=== PATIENT | male | born 1965 | race Caucasian/White ===

== ENCOUNTER 2018-03-16 03:34 | Inpatient (IN) | payer OTHER ==
[~2018-03-16] VITALS: Ht 188 cm; Wt 115.2 kg
[~2018-03-16 03:34] MED LIST: ALBU90OI INH; ALBU90OI61 INH
[2018-03-16] MEDS ORDERED: LOSARTAN-HCTZ1 EAC1 PO (04:04)
[2018-03-16] MEDS ORDERED: Citalopram HBr10 MG PO (04:04)
[2018-03-16 04:49] LABS: BASOPHILS ABSOLUTE AUTO 0.06 K/mm3 (0.00-0.23); BASOPHILS PERCENT AUTO 1 % (0-2); EOSINOPHILS ABSOLUTE AUTO 0.04 K/mm3 (0.00-0.68); EOSINOPHILS PERCENT AUTO 0 % (0-6); Hematocrit 41.1 % (37.0-53.0); Hemoglobin 14.8 g/dL (13.5-17.5); IMMATURE GRAN ABSOLUTE AUTO 0.05 K/mm3 (0.00-0.10); IMMATURE GRAN PERCENT AUTO 0 % (0-1); LYMPHOCYTES ABSOLUTE AUTO 0.61 K/mm3 (0.84-5.20); LYMPHOCYTES PERCENT AUTO 5 % (21-46); MONOCYTES ABSOLUTE AUTO 0.91 K/mm3 (0.16-1.47); MONOCYTES PERCENT AUTO 7 % (4-13); Mean Corpuscular HGB 35.3 pg (26.0-34.0); Mean Corpuscular Volume 98 fL (80-100); Mean Platelet Volume 10.2 fL (9.1-12.4); NEUTROPHILS ABSOLUTE AUTO 11.12 K/mm3 (1.96-9.15); NEUTROPHILS PERCENT AUTO 87 % (41-73); Platelet Count 135 K/mm3 (150-400); RDW Standard Deviation 42.8 fL (35.1-46.3); Red Blood Cell Count 4.19 M/mm3 (4.30-5.90); White Blood Cell Count 12.79 K/mm3 (4.00-11.30)
[2018-03-16 05:08] LABS: Albumin, Blood 3.4 g/dL (3.4-5.0); Albumin/Globulin Ratio 0.7 (0.8-1.8); Bilirubin, Total 0.7 mg/dL (0.1-1.0); Bun/Creatinine Ratio 14.6 (12.0-20.0); Calcium, Blood 8.4 mg/dL (8.5-10.1); Creatinine, Blood 1.85 mg/dL (0.60-1.20); Globulin, Blood 4.7 g/dL (2.2-4.0); Potassium, Blood 4.1 mmol/L (3.5-5.5); Total Protein, Blood 8.1 g/dL (6.4-8.2)
[2018-03-16] MEDS ORDERED: ALBU90OI INH (06:35)
[2018-03-18 10:00] LABS: Hematocrit 36.6 % (37.0-53.0); Hemoglobin 12.9 g/dL (13.5-17.5); Mean Corpuscular HGB 35.2 pg (26.0-34.0); Mean Corpuscular HGB Conc 35.2 g/dL (31.5-36.5); Mean Corpuscular Volume 100 fL (80-100); Platelet Count 92 K/mm3 (150-400); RDW Coefficient Variation 11.9 % (11.7-14.2); RDW Standard Deviation 43.2 fL (35.1-46.3); Red Blood Cell Count 3.66 M/mm3 (4.30-5.90); White Blood Cell Count 8.39 K/mm3 (4.00-11.30)
[2018-03-18 10:31] LABS: Anion Gap 8 mmol/L (6-16); Blood Urea Nitrogen 10 mg/dL (8-24); CO2, Blood 28 mmol/L (21-32); Calcium, Blood 8.6 mg/dL (8.5-10.1); Chloride, Blood 101 mmol/L (98-108); Creatinine, Blood 0.91 mg/dL (0.60-1.20); Glomerular Filtration Rate >60 (60-); Glucose, Blood 167 mg/dL (70-99); Potassium, Blood 3.8 mmol/L (3.5-5.5); Sodium, Blood 137 mmol/L (136-145)
[2018-03-20] MEDS ORDERED: Percocet 5-3251 EACH PO (08:11)
[2018-03-20] MEDS ORDERED: CLIN300 PO (08:16)
== END 2018-03-20 09:33 | disposition home or self-care (01) | DRG 872 ==
LOC: ER 03:34 → MEDS 04:47 → ENPENDDIS 03-20 07:30 → MEDS 03-20 09:33
PROVIDERS: Emergency Medicine; Family Medicine
DX: A41.9 Sepsis, unspecified organism (principal); N17.9 Acute kidney failure, unspecified; E87.1 Hypo-osmolality and hyponatremia; N49.2 Inflammatory disorders of scrotum; I10 Essential (primary) hypertension; J45.909 Unspecified asthma, uncomplicated; A60.02 Herpesviral infection of other male genital organs; Z90.49 Acquired absence of other specified parts of digestive tract; Z79.899 Other long term (current) drug therapy; Z87.891 Personal history of nicotine dependence; D69.6 Thrombocytopenia, unspecified; E66.9 Obesity, unspecified
CPT/HCPCS: 36415; 76870; 80048; 80053; 83605; 85025; 85027; 87040; 94760; 96365; 96375; 99285; J0133; J0360; J2405; J2543; J3010; J3370; J7030; J7050; J7120

== ENCOUNTER 2018-07-12 04:51 | Inpatient (IN) | payer OTHER ==
[~2018-07-12] VITALS: Ht 188 cm; Wt 119.2 kg
[~2018-07-12 04:51] MED LIST changes: +CLIN300 PO; +Citalopram HBr10 MG PO; +LOSARTAN-HCTZ1 EAC1 PO; +Percocet 5-3251 EACH PO
[2018-07-12 06:03] LABS: BASOPHILS ABSOLUTE AUTO 0.04 K/mm3 (0.00-0.23); BASOPHILS PERCENT AUTO 1 % (0-2); EOSINOPHILS ABSOLUTE AUTO 0.14 K/mm3 (0.00-0.68); EOSINOPHILS PERCENT AUTO 2 % (0-6); Hemoglobin 16.1 g/dL (13.5-17.5); IMMATURE GRAN ABSOLUTE AUTO 0.06 K/mm3 (0.00-0.10); IMMATURE GRAN PERCENT AUTO 1 % (0-1); LYMPHOCYTES ABSOLUTE AUTO 1.95 K/mm3 (0.84-5.20); LYMPHOCYTES PERCENT AUTO 24 % (21-46); MONOCYTES ABSOLUTE AUTO 0.64 K/mm3 (0.16-1.47); MONOCYTES PERCENT AUTO 8 % (4-13); Mean Corpuscular HGB 33.5 pg (26.0-34.0); Mean Corpuscular Volume 96 fL (80-100); Mean Platelet Volume 9.5 fL (9.1-12.4); NEUTROPHILS ABSOLUTE AUTO 5.31 K/mm3 (1.96-9.15); NEUTROPHILS PERCENT AUTO 65 % (41-73); Platelet Count 159 K/mm3 (150-400); RDW Coefficient Variation 12.3 % (11.7-14.2); RDW Standard Deviation 42.9 fL (35.1-46.3); Red Blood Cell Count 4.81 M/mm3 (4.30-5.90); White Blood Cell Count 8.14 K/mm3 (4.00-11.30)
[2018-07-12 06:20] LABS: International Normalized Ratio 1.17; Prothrombin Time Results 11.9 Sec (9.7-11.5)
[2018-07-12 06:26] LABS: Alanine Aminotransfer (ALT/SGP 51 U/L (12-78); Albumin, Blood 3.6 g/dL (3.4-5.0); Albumin/Globulin Ratio 0.8 (0.8-1.8); Alk Phos 76 U/L (50-136); Anion Gap 8 mmol/L (6-16); Aspartate Aminotrans (AST/SGOT 51 U/L (12-37); Bilirubin, Total 0.4 mg/dL (0.1-1.0); Blood Urea Nitrogen 9 mg/dL (8-24); Bun/Creatinine Ratio 10.9 (12.0-20.0); CO2, Blood 26 mmol/L (21-32); Calcium, Blood 8.2 mg/dL (8.5-10.1); Chloride, Blood 106 mmol/L (98-108); Creatinine, Blood 0.83 mg/dL (0.60-1.20); Globulin, Blood 4.8 g/dL (2.2-4.0); Glomerular Filtration Rate >60 (60-); Glucose, Blood 110 mg/dL (70-99); Potassium, Blood 3.9 mmol/L (3.5-5.5); Sodium, Blood 140 mmol/L (136-145); Total Protein, Blood 8.4 g/dL (6.4-8.2)
[2018-07-12] MEDS ORDERED: Cleocin HCl300 MG PO (06:43)
[2018-07-12] MEDS ORDERED: Zovirax400 MG PO (06:44)
[2018-07-12] MEDS ORDERED: Percocet 10-321 EACH PO (06:44)
[2018-07-13 05:50] LABS: BASOPHILS ABSOLUTE AUTO 0.04 K/mm3 (0.00-0.23); BASOPHILS PERCENT AUTO 0 % (0-2); EOSINOPHILS ABSOLUTE AUTO 0.07 K/mm3 (0.00-0.68); EOSINOPHILS PERCENT AUTO 1 % (0-6); Hematocrit 43.9 % (37.0-53.0); Hemoglobin 14.6 g/dL (13.5-17.5); IMMATURE GRAN PERCENT AUTO 1 % (0-1); LYMPHOCYTES PERCENT AUTO 6 % (21-46); MONOCYTES ABSOLUTE AUTO 0.76 K/mm3 (0.16-1.47); MONOCYTES PERCENT AUTO 5 % (4-13); Mean Corpuscular HGB 33.3 pg (26.0-34.0); Mean Corpuscular HGB Conc 33.3 g/dL (31.5-36.5); Mean Platelet Volume 9.9 fL (9.1-12.4); NEUTROPHILS ABSOLUTE AUTO 13.22 K/mm3 (1.96-9.15); NEUTROPHILS PERCENT AUTO 88 % (41-73); Platelet Count 117 K/mm3 (150-400); RDW Coefficient Variation 12.3 % (11.7-14.2); RDW Standard Deviation 45.1 fL (35.1-46.3); Red Blood Cell Count 4.39 M/mm3 (4.30-5.90); White Blood Cell Count 15.09 K/mm3 (4.00-11.30)
[2018-07-13 05:53] LABS: Mean Corpuscular Volume 100 fL (80-100)
[2018-07-13 06:11] LABS: Albumin, Blood 3.1 g/dL (3.4-5.0); Albumin/Globulin Ratio 0.7 (0.8-1.8); Bun/Creatinine Ratio 12.6 (12.0-20.0); Creatinine, Blood 1.35 mg/dL (0.60-1.20); Globulin, Blood 4.3 g/dL (2.2-4.0); Potassium, Blood 3.5 mmol/L (3.5-5.5); Total Protein, Blood 7.4 g/dL (6.4-8.2)
[2018-07-13 15:42] LABS: Vancomycin, Trough 15.9 ug/mL (5.0-10.0)
[2018-07-14 05:52] LABS: BASOPHILS ABSOLUTE AUTO 0.02 K/mm3 (0.00-0.23); BASOPHILS PERCENT AUTO 0 % (0-2); EOSINOPHILS ABSOLUTE AUTO 0.15 K/mm3 (0.00-0.68); EOSINOPHILS PERCENT AUTO 2 % (0-6); Hematocrit 42.1 % (37.0-53.0); Hemoglobin 14.1 g/dL (13.5-17.5); IMMATURE GRAN ABSOLUTE AUTO 0.09 K/mm3 (0.00-0.10); IMMATURE GRAN PERCENT AUTO 1 % (0-1); LYMPHOCYTES ABSOLUTE AUTO 1.06 K/mm3 (0.84-5.20); LYMPHOCYTES PERCENT AUTO 10 % (21-46); MONOCYTES ABSOLUTE AUTO 0.86 K/mm3 (0.16-1.47); MONOCYTES PERCENT AUTO 8 % (4-13); Mean Corpuscular HGB 33.2 pg (26.0-34.0); Mean Corpuscular HGB Conc 33.5 g/dL (31.5-36.5); Mean Corpuscular Volume 99 fL (80-100); Mean Platelet Volume 10.5 fL (9.1-12.4); NEUTROPHILS ABSOLUTE AUTO 8.16 K/mm3 (1.96-9.15); NEUTROPHILS PERCENT AUTO 79 % (41-73); Platelet Count 111 K/mm3 (150-400); RDW Coefficient Variation 12.6 % (11.7-14.2); RDW Standard Deviation 45.1 fL (35.1-46.3); Red Blood Cell Count 4.25 M/mm3 (4.30-5.90); White Blood Cell Count 10.34 K/mm3 (4.00-11.30)
[2018-07-14 06:07] LABS: Anion Gap 4 mmol/L (6-16); Blood Urea Nitrogen 16 mg/dL (8-24); Bun/Creatinine Ratio 16.3 (12.0-20.0); CO2, Blood 29 mmol/L (21-32); Calcium, Blood 8.3 mg/dL (8.5-10.1); Chloride, Blood 106 mmol/L (98-108); Creatinine, Blood 0.98 mg/dL (0.60-1.20); Glomerular Filtration Rate >60 (60-); Glucose, Blood 107 mg/dL (70-99); Potassium, Blood 3.8 mmol/L (3.5-5.5); Sodium, Blood 139 mmol/L (136-145)
[2018-07-14 16:15] LABS: Vancomycin, Trough 15.3 ug/mL (5.0-10.0)
[2018-07-15 04:34] LABS: BASOPHILS ABSOLUTE AUTO 0.03 K/mm3 (0.00-0.23); BASOPHILS PERCENT AUTO 0 % (0-2); EOSINOPHILS ABSOLUTE AUTO 0.13 K/mm3 (0.00-0.68); EOSINOPHILS PERCENT AUTO 1 % (0-6); Hematocrit 41.9 % (37.0-53.0); Hemoglobin 14.2 g/dL (13.5-17.5); IMMATURE GRAN ABSOLUTE AUTO 0.07 K/mm3 (0.00-0.10); IMMATURE GRAN PERCENT AUTO 1 % (0-1); LYMPHOCYTES ABSOLUTE AUTO 1.38 K/mm3 (0.84-5.20); LYMPHOCYTES PERCENT AUTO 12 % (21-46); MONOCYTES PERCENT AUTO 9 % (4-13); Mean Corpuscular HGB 33.5 pg (26.0-34.0); Mean Corpuscular HGB Conc 33.9 g/dL (31.5-36.5); Mean Corpuscular Volume 99 fL (80-100); Mean Platelet Volume 9.8 fL (9.1-12.4); NEUTROPHILS ABSOLUTE AUTO 8.62 K/mm3 (1.96-9.15); NEUTROPHILS PERCENT AUTO 77 % (41-73); Platelet Count 115 K/mm3 (150-400); RDW Coefficient Variation 12.3 % (11.7-14.2); RDW Standard Deviation 44.3 fL (35.1-46.3); Red Blood Cell Count 4.24 M/mm3 (4.30-5.90); White Blood Cell Count 11.23 K/mm3 (4.00-11.30)
[2018-07-15 05:00] LABS: Anion Gap 5 mmol/L (6-16); Blood Urea Nitrogen 12 mg/dL (8-24); Bun/Creatinine Ratio 13.2 (12.0-20.0); CO2, Blood 30 mmol/L (21-32); Calcium, Blood 9.9 mg/dL (8.5-10.1); Chloride, Blood 104 mmol/L (98-108); Creatinine, Blood 0.91 mg/dL (0.60-1.20); Glomerular Filtration Rate >60 (60-); Glucose, Blood 109 mg/dL (70-99); Potassium, Blood 4.2 mmol/L (3.5-5.5); Sodium, Blood 139 mmol/L (136-145)
[2018-07-16 07:18] LABS: Hematocrit 41.4 % (37.0-53.0); Hemoglobin 14.5 g/dL (13.5-17.5); Mean Corpuscular HGB 33.6 pg (26.0-34.0); Mean Platelet Volume 9.9 fL (9.1-12.4); Platelet Count 138 K/mm3 (150-400); RDW Standard Deviation 42.4 fL (35.1-46.3); Red Blood Cell Count 4.31 M/mm3 (4.30-5.90); White Blood Cell Count 9.22 K/mm3 (4.00-11.30)
[2018-07-16 07:25] LABS: Mean Corpuscular Volume 96 fL (80-100)
[2018-07-16 07:35] LABS: Vancomycin, Trough 18.8 ug/mL (5.0-10.0)
[2018-07-16 07:41] LABS: Anion Gap 7 mmol/L (6-16); Blood Urea Nitrogen 11 mg/dL (8-24); Bun/Creatinine Ratio 11.7 (12.0-20.0); CO2, Blood 29 mmol/L (21-32); Chloride, Blood 101 mmol/L (98-108); Creatinine, Blood 0.94 mg/dL (0.60-1.20); Glomerular Filtration Rate >60 (60-); Glucose, Blood 103 mg/dL (70-99); Sodium, Blood 137 mmol/L (136-145)
[2018-07-17 04:56] LABS: Hematocrit 41.6 % (37.0-53.0); Hemoglobin 14.7 g/dL (13.5-17.5); Mean Corpuscular HGB 33.3 pg (26.0-34.0); Mean Corpuscular HGB Conc 35.3 g/dL (31.5-36.5); Mean Corpuscular Volume 94 fL (80-100); Mean Platelet Volume 9.7 fL (9.1-12.4); Platelet Count 155 K/mm3 (150-400); RDW Coefficient Variation 11.9 % (11.7-14.2); RDW Standard Deviation 41.5 fL (35.1-46.3); Red Blood Cell Count 4.42 M/mm3 (4.30-5.90); White Blood Cell Count 9.91 K/mm3 (4.00-11.30)
[2018-07-17 05:25] LABS: Anion Gap 7 mmol/L (6-16); Blood Urea Nitrogen 15 mg/dL (8-24); Bun/Creatinine Ratio 16.2 (12.0-20.0); CO2, Blood 30 mmol/L (21-32); Calcium, Blood 9.4 mg/dL (8.5-10.1); Chloride, Blood 100 mmol/L (98-108); Creatinine, Blood 0.93 mg/dL (0.60-1.20); Glomerular Filtration Rate >60 (60-); Glucose, Blood 98 mg/dL (70-99); Potassium, Blood 4.1 mmol/L (3.5-5.5); Sodium, Blood 137 mmol/L (136-145)
[2018-07-17 08:18] LABS: CHLAMYDIA BY NAA Negative (Negative); GONOCOCCUS BY NAA Negative (Negative); TRICH VAG BY NAA Negative (Negative)
[2018-07-17] MEDS ORDERED: Valtrex1000 MG PO (11:57)
[2018-07-17] MEDS ORDERED: Percocet 10-321 EACH PO (11:58)
[2018-07-17] MEDS ORDERED: IBUP800 PO (12:00)
[2018-07-17] MEDS ORDERED: SACC250C PO (12:01)
[2018-07-18 11:07] LABS: PANEL 138901 Negative (Negative)
== END 2018-07-17 13:15 | disposition home or self-care (01) | DRG 728 ==
LOC: ER 04:51 → MEDS 08:47 → ENPENDDIS 07-17 12:08 → MEDS 07-17 13:15
PROVIDERS: Emergency Medicine; Family Medicine; Internal Medicine
DX: N49.2 Inflammatory disorders of scrotum (principal); N17.9 Acute kidney failure, unspecified; Z90.49 Acquired absence of other specified parts of digestive tract; Z87.891 Personal history of nicotine dependence; A60.00 Herpesviral infection of urogenital system, unspecified; I10 Essential (primary) hypertension; F32.9 Major depressive disorder, single episode, unspecified
CPT/HCPCS: 36415; 76870; 80048; 80053; 80202; 83605; 85025; 85027; 85610; 85730; 86702; 87040; 87491; 87591; 87661; 93005; 93010; 94760; 96365; 96366; 96367; 96375; 96376; 99285-25; J0360; J0692; J0696; J1170; J1650; J1956; J2405; J2543; J3370; J7030; J7050; J7120

== ENCOUNTER → 2018-12-16 | Outpatient (CLI) | payer SELFPAY ==
[~2018-12-16] MED LIST changes: +Cleocin HCl300 MG PO; +IBUP800 PO; +Percocet 10-321 EACH PO; +SACC250C PO; +Valtrex1000 MG PO; +Zovirax400 MG PO
[2018-12-16 19:17] LABS: Alanine Aminotransfer (ALT/SGP 171 U/L (12-78); Albumin, Blood 3.8 g/dL (3.4-5.0); Albumin/Globulin Ratio 0.7 (0.8-1.8); Alk Phos 138 U/L (50-136); Anion Gap 9 mmol/L (6-16); Aspartate Aminotrans (AST/SGOT 219 U/L (12-37); Bilirubin, Total 0.9 mg/dL (0.1-1.0); Blood Urea Nitrogen 11 mg/dL (8-24); Bun/Creatinine Ratio 16.4 (12.0-20.0); CO2, Blood 26 mmol/L (21-32); Chloride, Blood 101 mmol/L (98-108); Creatinine, Blood 0.67 mg/dL (0.60-1.20); Globulin, Blood 5.2 g/dL (2.2-4.0); Glomerular Filtration Rate >60 (60-); Glucose, Blood 123 mg/dL (70-99); Potassium, Blood 3.7 mmol/L (3.5-5.5); Sodium, Blood 136 mmol/L (136-145)
== END | disposition home or self-care (01) ==
LOC: LAB 17:09 → LAB SHORT 17:09
PROVIDERS: Nurse Practitioner Family
DX: F10.10 Alcohol abuse, uncomplicated (principal)
CPT/HCPCS: 80053

== ENCOUNTER → 2018-12-18 | Outpatient (CLI) | payer SELFPAY ==
[2018-12-18 17:20] LABS: U Amphetamine Screen Not Detected; U Barbituate Screen Not Detected; U Benzodiazapine Screen Not Detected; U Buprenorphine Screen Not Detected; U Cannabinoids Screen Not Detected; U Cocaine Screen Not Detected; U Methadone Screen Not Detected; U Methamphetamine Screen Not Detected; U Opiates Screen Not Detected; U Oxycodone Screen Not Detected; U Phencyclidine Screen Not Detected; U Propoxyphene Screen Not Detected
== END | disposition home or self-care (01) ==
LOC: LAB SHORT 16:34 → LAB 16:34
PROVIDERS: Nurse Practitioner Family
DX: F10.10 Alcohol abuse, uncomplicated (principal)

== ENCOUNTER 2018-12-31 03:31 | Emergency (ER) | payer SELFPAY ==
[~2018-12-31] VITALS: Ht 188 cm; Wt 124.7 kg
[2018-12-31] MEDS ORDERED: Norco 5-325 Ta1 EACH PO (04:40)
[2018-12-31] MEDS ORDERED: Cleocin HCl150 MG PO (04:40)
[2018-12-31] MEDS ORDERED: ONDA4ODT MM (04:40)
[2018-12-31] MEDS ORDERED: Valtrex1000 MG PO (04:40)
[2018-12-31] MEDS ORDERED: TRAZ50 PO (15:39)
== END 2018-12-31 05:49 | disposition home or self-care (01) ==
LOC: ER 03:31
DX: L03.314 Cellulitis of groin (principal); B00.9 Herpesviral infection, unspecified; Z79.899 Other long term (current) drug therapy; J45.909 Unspecified asthma, uncomplicated; Z87.891 Personal history of nicotine dependence
CPT/HCPCS: 96374; 96375; 99282-25; A9270-GY; J0692; J1170; J2405; J7030

== ENCOUNTER 2018-12-31 13:27 | Day surgery (SDC) | payer SELFPAY ==
[~2018-12-31 13:27] MED LIST changes: +Cleocin HCl150 MG PO; +Norco 5-325 Ta1 EACH PO; +ONDA4ODT MM
[2018-12-31] MEDS ORDERED: TRAZ50 PO (15:39)
== END 2018-12-31 15:50 | disposition home or self-care (01) ==
LOC: ATC 13:27
DX: L03.314 Cellulitis of groin (principal); B00.9 Herpesviral infection, unspecified; J45.909 Unspecified asthma, uncomplicated; Z87.891 Personal history of nicotine dependence; Z79.899 Other long term (current) drug therapy
CPT/HCPCS: 96365; J0692

== ENCOUNTER 2020-09-21 17:52 | Inpatient (IN) | payer OTHER ==
[~2020-09-21] VITALS: Ht 188 cm; Wt 99.7 kg
[~2020-09-21 17:52] MED LIST changes: +TRAZ50 PO
[2020-09-21 19:04] LABS: BASOPHILS ABSOLUTE AUTO 0.05 K/mm3 (0.00-0.23); BASOPHILS PERCENT AUTO 1 % (0-2); EOSINOPHILS ABSOLUTE AUTO 0.01 K/mm3 (0.00-0.68); EOSINOPHILS PERCENT AUTO 0 % (0-6); Hematocrit 44.9 % (37.0-53.0); Hemoglobin 15.4 g/dL (13.5-17.5); IMMATURE GRAN ABSOLUTE AUTO 0.02 K/mm3 (0.00-0.10); IMMATURE GRAN PERCENT AUTO 0 % (0-1); LYMPHOCYTES PERCENT AUTO 14 % (21-46); MONOCYTES ABSOLUTE AUTO 0.42 K/mm3 (0.16-1.47); MONOCYTES PERCENT AUTO 8 % (4-13); Mean Corpuscular HGB 33.8 pg (26.0-34.0); Mean Corpuscular HGB Conc 34.3 g/dL (31.5-36.5); Mean Corpuscular Volume 99 fL (80-100); Mean Platelet Volume 10.9 fL (9.1-12.4); NEUTROPHILS ABSOLUTE AUTO 3.86 K/mm3 (1.96-9.15); NEUTROPHILS PERCENT AUTO 76 % (41-73); NRBC ABSOLUTE 0.02 K/mm3 (0.00-0.02); NRBC Auto 0.4 /100 WBC (0.0-0.2); RDW Coefficient Variation 12.3 % (11.7-14.2); RDW Standard Deviation 45.1 fL (35.1-46.3); Red Blood Cell Count 4.56 M/mm3 (4.30-5.90); White Blood Cell Count 5.06 K/mm3 (4.00-11.30)
[2020-09-21 19:13] LABS: Platelet Count 40 K/mm3 (150-400)
[2020-09-21 19:25] LABS: Alanine Aminotransfer (ALT/SGP 107 U/L (12-78); Albumin, Blood 3.2 g/dL (3.4-5.0); Albumin/Globulin Ratio 0.7 (0.8-1.8); Alk Phos 123 U/L (50-136); Anion Gap 12 mmol/L (6-16); Aspartate Aminotrans (AST/SGOT 239 U/L (12-37); Bilirubin, Total 2.7 mg/dL (0.1-1.0); Blood Urea Nitrogen 11 mg/dL (8-24); Bun/Creatinine Ratio 16.2 (12.0-20.0); CO2, Blood 24 mmol/L (21-32); Calcium, Blood 10.5 mg/dL (8.5-10.1); Chloride, Blood 100 mmol/L (98-108); Creatinine, Blood 0.68 mg/dL (0.60-1.20); Globulin, Blood 4.8 g/dL (2.2-4.0); Glomerular Filtration Rate >60 (60-); Glucose, Blood 168 mg/dL (70-99); Sodium, Blood 136 mmol/L (136-145)
[2020-09-21 20:49] LABS: Influenza A, PCR Negative (NEGATIVE); Influenza B, PCR Negative (NEGATIVE); Resp Syncytial Virus, PCR Negative (NEGATIVE); SARS-Cov-2 (COVID-19) PCR, MMC Negative (NEGATIVE)
[2020-09-21 21:58] LABS: Troponin I <0.015 ng/mL (0.000-0.040)
[2020-09-21 22:58] LABS: Ethanol (Alcohol), Blood, Med 160 mg/dL
[2020-09-22] MEDS ORDERED: AZIT250 PO (01:14)
[2020-09-22] MEDS ORDERED: CEFD300 PO (01:15)
[2020-09-22] MEDS ORDERED: Inderal 20 mg T20 MG PO (02:26)
--- NOTE | 2020-09-22 05:03 | NUR ---
PCU ADMIT PT BROUGHT TO PCU MEDICAL W/ TELE STATUS BY LAZ[facility] FROM ER @ APPROX 0330. PT A&O X4, SLID OVER FROM [facility] TO PCU BED BY 3 STAFF D/T PT REPORTING INABILITY TO STAND. PT NOTED TO BE EXTREMELY WEAK & HAVING SEVERE BUE TREMORS. PT PROFUSELY SWEATY & REPORTS HAVING VISUAL HALLUCINATIONS, STATING "IT'S LIKE I'M SEEING MOVIES. THEY'RE LIKE [employer] Solutions[employer] CLIPS, BUT WITH NO SOUND." PT W/ CIWA OF 24 UPON ARRIVAL, MEDICATED W/ 3 MG PRN IV ATIVAN PER EMAR & 50 MG PRN PO LIBRIUM PER EMAR. UPON REASSESSMENT OF PT, PT CIWA DOWN TO 14 W/ PT TREMORS SIGNIFICANTLY REDUCED & NO SWEATING VISIBLE OR FELT AT THIS TIME. PT REPORTS ATIVAN REALLY HELPFUL. PT BP ELEVATED, OTHERWISE VSS. SPO2 > 92% ON RA. MONITOR SHOWS SR, HR 80's-90's. PT C/O HEARTBURN & HAS HAD HICCUPS SINCE ARRIVAL TO UNIT. PT ALSO W/ C/O "WHOLE BODY ACHES" W/ REQUEST FOR PAIN MEDICATION. CALL TO MD MCCRACKEN W/ NEW ORDERS TO CHANGE FROM MEDICAL STATUS TO PCU STATUS. NEW ORDER FOR BID IV PROTONIX, SEE EMAR. W/ NO ORDER FOR PAIN MEDICATION AT THIS TIME. WILL CONTINUE TO MONITOR & PROVIDE CARE.
--- NOTE | 2020-09-22 06:32 | NUR ---
SHIFT SUMMARY PT CONTINUING W/ SIGNIFICANT TREMORS & VISUAL HALLUCINATIONS, MEDICATING PER EMAR W/ IMPROVEMENT. PT A&O X4, PLEASANT & COOPERATIVE. BP ELEVATED, OTHERWISE VSS. PT NOW SLEEPING AT THIS TIME. WILL CONTINUE TO MONITOR & PROVIDE CARE UNTIL REPORT OFF TO DAY SHIFT RN.
[2020-09-22 11:22] LABS: Alanine Aminotransfer (ALT/SGP 104 U/L (12-78); Albumin, Blood 2.9 g/dL (3.4-5.0); Albumin/Globulin Ratio 0.7 (0.8-1.8); Alk Phos 115 U/L (50-136); Anion Gap 6 mmol/L (6-16); Aspartate Aminotrans (AST/SGOT 239 U/L (12-37); Bilirubin, Total 3.2 mg/dL (0.1-1.0); Blood Urea Nitrogen 11 mg/dL (8-24); Bun/Creatinine Ratio 15.2 (12.0-20.0); CO2, Blood 31 mmol/L (21-32); Calcium, Blood 9.3 mg/dL (8.5-10.1); Chloride, Blood 103 mmol/L (98-108); Creatinine, Blood 0.73 mg/dL (0.60-1.20); Globulin, Blood 4.3 g/dL (2.2-4.0); Glomerular Filtration Rate >60 (60-); Glucose, Blood 131 mg/dL (70-99); Potassium, Blood 3.6 mmol/L (3.5-5.5); Sodium, Blood 140 mmol/L (136-145); Total Protein, Blood 7.2 g/dL (6.4-8.2)
--- NOTE | 2020-09-22 18:05 | NUR ---
SHIFT SUMMARY; ASSUMED CARE AT 0700, REPORT FROM MONICA. AWAKES TO VERBAL STIMULI AND ORIENTED TO SELF. TREMULOUS WITH DIAPHERESIS, CIWA PROTOCOL MONITORED AND TREATED. LESS DIAPHERESIS THROUGHOUT THE DAY, CONTINUES TO HAVE AUDITORY HALLUCINATIONS. REPOSITIONS SELF NEEDED. USES URINAL WITH ASSISTANCE. ORIENTED TO SELF AND SITUATION AT THIS TIME, SLEEPY. VSS, 2L 02 VIA NC, CONTINUOUS BIOX. WILL CONTINUE TO MONITOR AND TREAT UNTIL CHANGE OF SHIFT.
--- NOTE | 2020-09-23 05:34 | NUR ---
SHIFT SUMMARY PT A&O X3, DISORIENTED TO DATE/TIME BY < 2 DAYS DESPITE STAFF REMINDING. PT CIWA 9-14 THIS SHIFT, MEDICATING W/ SCHEDULED LIBRIUM PER EMAR X3 THIS SHIFT, & PRN ATIVAN X2 THIS SHIFT. PT CONTINUES TO BE SWEATY & TREMULOUS. PT DENIES HALLUCINATIONS THIS SHIFT. PT OVERALL CALM & COOPERATIVE, AGITATED AT 1 POINT THIS SHIFT, FRUSTRATED W/ HIS CURRENT PHYSICAL STATE OF BEING UNABLE TO STAND D/T BEING TOO WEAK & TREMULOUS. PT REPORTS "I WANT TO GO HOME TODAY." PT STILL HOWEVER ON BOARD W/ ALCOHOL CESSATION AT THIS POINT. WILL CONTINUE TO MONITOR & PROVIDE CARE UNTIL REPORT OFF TO DAY SHIFT RN.
[2020-09-23 07:38] LABS: Hematocrit 40.9 % (37.0-53.0); Hemoglobin 13.7 g/dL (13.5-17.5); Mean Corpuscular HGB 34.3 pg (26.0-34.0); Mean Corpuscular HGB Conc 33.5 g/dL (31.5-36.5); Mean Corpuscular Volume 103 fL (80-100); Mean Platelet Volume 12.5 fL (9.1-12.4); RDW Coefficient Variation 12.9 % (11.7-14.2); RDW Standard Deviation 48.9 fL (35.1-46.3); Red Blood Cell Count 3.99 M/mm3 (4.30-5.90); White Blood Cell Count 2.85 K/mm3 (4.00-11.30)
[2020-09-23 07:43] LABS: Platelet Count 20 K/mm3 (150-400)
[2020-09-23 07:46] LABS: Anion Gap 4 mmol/L (6-16); Blood Urea Nitrogen 12 mg/dL (8-24); Bun/Creatinine Ratio 18.3 (12.0-20.0); CO2, Blood 32 mmol/L (21-32); Chloride, Blood 103 mmol/L (98-108); Creatinine, Blood 0.66 mg/dL (0.60-1.20); Glomerular Filtration Rate >60 (60-); Glucose, Blood 114 mg/dL (70-99); Potassium, Blood 3.8 mmol/L (3.5-5.5); Sodium, Blood 139 mmol/L (136-145)
--- NOTE | 2020-09-23 07:58 | NUR ---
Bedside report received from Mary Mccurdy the pt appeared to be sleeping at the time. The pt was awakened by elian Kirby. Gave results of critical platelet level to her in pt's room. The pt is awake, vainly attempting to put chewing tobacco in his mouth but is tremulous and not able to bring his fingers to his mouth without great effort. He is spilling it all over the bed. DR. Foley states that the pt told her he was having problems with urinary incontinence at home, and he has had urinary incontinence at this time, as well. Pt states that he has a mild headache, 1/10, mild nausea, and he also has visible tremors when he holds his hands out in front. States that he needs "another liter of fluid". States that he is able to eat and drink, and requests that he be given a lot of ice water at the bedside. This was provided to him. He wants to try to eat and drink on his own this morning. CNAs asked to provide assistance and hygeine care this morning.
[2020-09-23 10:17] LABS: BASOPHILS ABSOLUTE AUTO 0.02 K/mm3 (0.00-0.23); BASOPHILS PERCENT AUTO 1 % (0-2); EOSINOPHILS ABSOLUTE AUTO 0.08 K/mm3 (0.00-0.68); EOSINOPHILS PERCENT AUTO 3 % (0-6); Hematocrit 41.6 % (37.0-53.0); Hemoglobin 13.5 g/dL (13.5-17.5); IMMATURE GRAN ABSOLUTE AUTO 0.01 K/mm3 (0.00-0.10); IMMATURE GRAN PERCENT AUTO 0 % (0-1); LYMPHOCYTES ABSOLUTE AUTO 0.44 K/mm3 (0.84-5.20); LYMPHOCYTES PERCENT AUTO 15 % (21-46); MONOCYTES PERCENT AUTO 13 % (4-13); Mean Corpuscular HGB 33.4 pg (26.0-34.0); Mean Corpuscular HGB Conc 32.5 g/dL (31.5-36.5); Mean Corpuscular Volume 103 fL (80-100); Mean Platelet Volume 12.7 fL (9.1-12.4); NEUTROPHILS ABSOLUTE AUTO 2.08 K/mm3 (1.96-9.15); NEUTROPHILS PERCENT AUTO 69 % (41-73); RDW Standard Deviation 49.6 fL (35.1-46.3); Red Blood Cell Count 4.04 M/mm3 (4.30-5.90); White Blood Cell Count 3.03 K/mm3 (4.00-11.30)
[2020-09-23 10:22] LABS: Platelet Count 21 K/mm3 (150-400)
--- NOTE | 2020-09-23 10:28 | NUR ---
IV fluids hung at this time; the pt is sleeping but awakened easily when I spoke with him. He quickly fell back asleep.
--- NOTE | 2020-09-23 10:42 | NUR ---
BEDSIDE REPORT RECEIVED FROM NOC RN. PT WAS RESTING AT THE TIME OF REPORT. PT REPORTED SOME NAUSEA, A MILD HEADACHE AND OVERALL BODY ACHES. PT RECEIVED MORNING MEDICATION WELL ZOFRAN. PT HAS FLUIDS RUNNING. PT WAS A BIT SLOW TO RESPOND THIS MORNING AND STRUGGLED TO CONTROL HIS ARM MOVEMENTS; PT WAS NOT ABLE TO GET HIS HAND TO HIS MOUTH HIS DEPTH PERCEPTION WAS OFF AND TREMORS WERE TOO FAST TO BE ABLE TO GET THE MEDICATIONS TO HIS MOUTH. PT IS RESTING AT THIS TIME
--- NOTE | 2020-09-23 16:12 | NUR ---
CELL PHONE PT HAD A CELL PHONE IN THE ROOM THIS MORNING WHEN WE ARRIVED ON SHIFT. PT ASKED FOR A USB WALL PORT FOR HIS CORD TO CHARGE HIS PHONE. I WAS ABLE TO FIND ONE AND PLUG HIS PHONE IN FOR HIM. WHEN I SPOKE WITH HIS GIRLFRIEND THIS MORNING, RAYA, I EXPLAINED THAT HE MAY NOT HAVE BEEN ANSWERING CALLS BECAUSE HIS PHONE WAS , BUT IT IS NOW ON THE ORGAN TUNER. ONCE THE VISITING HOUR WINDOW WAS OPEN, PROFESSOR OF VEGETABLE SCIENCE'Anusha LOUIS AND YUSUF CURIEL FOUND THE GIRLFRIEND, RAYA IN HIS ROOM; TAKING THE PHONE AND WHEN QUESTIONED ABOUT IT, SHE STATED "SHE WAS THE GIRLFRIEND AND WAS TAKING IT TO CHARGE AND WOULD BRING IT BACK" SHE THEN LEFT. AT THIS TIME, THE PT WAS VERY LETHARGIC AND SLEEPING AND UNAWARE OF THIS EVENT. ONCE I WAS INFORMED I ASKED THE PT IF HE WAS AWARE THIS HAD HAPPENED AND IF HE WOULD LIKE FOR ME TO CALL RAYA AND INQUIRE TO WHEN IT WOULD BE BACK; HE AGREED STATING "I WANT TO CALL SOME OF MY FAMILY, I NEED MY PHONE." WALT DUQUE, CALLED RAYA USING THE PHONE NUMBER FROM PT CONTACT [employer] IN THE CHART BUT RECEIVED NO ANSWER; WILL ATTEMPT AGAIN LATER.
--- NOTE | 2020-09-23 17:23 | NUR ---
SHIFT SUMMARY PT HAS BEEN VERY LETHARGIC BUT AROUSABLE THROUGHOUT THE DAY. THE PHENIBARBITOL WAS HELD AT NOON DUE TO SOLUMENCE AND LACK OF AROUSAL. PT HAS HAD A LINEN CHANGE, AND IS CURRENTLY WEARING BRIEFS HE HAS BEEN OCCASSIONALLY INCONTINENT TODAY. PT HAS BED ALARM AND SCDS ON. NS IS RUNNING. SLIGHT TREMORS AND SWEATING HAVE BEEN PRESENT TODAY. PT IS WANTING TO WORK WITH PHYSICAL THERAPY AND OCCUPATIONAL THERAPY TOMORROW HOPING HE WILL BE MORE AWAKE TO DO SO.
--- NOTE | 2020-09-23 18:24 | NUR ---
CELL PHONE UPDATE PT'S GIRLFRIEND, RAYA, RETURNED WITH THE CELL PHONE, REPORTING THAT SHE HAD CHARGED IT SOME AND BROUGHT IT BACK. I EXPLAINED THAT SHE IS WELCOME TO BRING A OPEN DEVELOPER OPERATOR HERE WHEN SHE RETURNS.
--- NOTE | 2020-09-24 05:00 | NUR ---
SUMMARY PATIENT IS ALERT, ORIENTED AND COOPERATIVE WITH CARE. 2 PERSON ASSIST WITH REPOSTIONING IN BED. LAST CIWA SCORE WAS 10, MEDICATED, SEE EMAR. PATIENT DRINKING FLUIDS WELL. 02 SATS >90% ON 2L NC WHILE SLEEPING. PATIENT SLEPT PART OF THE NIGHT. VSS, NO ACUTE CHANGES. CALL LIGHT IN REACH, BED ALARM ON. WILL CONTINUE TO MONITOR.
[2020-09-24 08:23] LABS: BASOPHILS ABSOLUTE AUTO 0.03 K/mm3 (0.00-0.23); BASOPHILS PERCENT AUTO 1 % (0-2); EOSINOPHILS ABSOLUTE AUTO 0.16 K/mm3 (0.00-0.68); EOSINOPHILS PERCENT AUTO 4 % (0-6); Hematocrit 40.8 % (37.0-53.0); Hemoglobin 13.7 g/dL (13.5-17.5); IMMATURE GRAN ABSOLUTE AUTO 0.03 K/mm3 (0.00-0.10); IMMATURE GRAN PERCENT AUTO 1 % (0-1); LYMPHOCYTES PERCENT AUTO 18 % (21-46); MONOCYTES PERCENT AUTO 10 % (4-13); Mean Corpuscular HGB 34.8 pg (26.0-34.0); Mean Corpuscular HGB Conc 33.6 g/dL (31.5-36.5); Mean Corpuscular Volume 104 fL (80-100); Mean Platelet Volume 11.3 fL (9.1-12.4); NEUTROPHILS ABSOLUTE AUTO 2.66 K/mm3 (1.96-9.15); NEUTROPHILS PERCENT AUTO 67 % (41-73); RDW Standard Deviation 49.7 fL (35.1-46.3); Red Blood Cell Count 3.94 M/mm3 (4.30-5.90); White Blood Cell Count 3.98 K/mm3 (4.00-11.30)
[2020-09-24 08:29] LABS: Platelet Count 23 K/mm3 (150-400)
[2020-09-24 08:38] LABS: Anion Gap 5 mmol/L (6-16); Blood Urea Nitrogen 8 mg/dL (8-24); Bun/Creatinine Ratio 14.4 (12.0-20.0); CO2, Blood 30 mmol/L (21-32); Calcium, Blood 8.9 mg/dL (8.5-10.1); Chloride, Blood 103 mmol/L (98-108); Creatinine, Blood 0.56 mg/dL (0.60-1.20); Glomerular Filtration Rate >60 (60-); Glucose, Blood 105 mg/dL (70-99); Magnesium, Blood 1.5 mg/dL (1.6-2.4); Potassium, Blood 3.8 mmol/L (3.5-5.5); Sodium, Blood 138 mmol/L (136-145)
--- NOTE | 2020-09-24 17:41 | NUR ---
SHIFT SUMMARY; ASSUMED CARE AT 0700. INTERMITANTLY CONFUSED THROUGHOUT SHIFT WITH INTERMITANT DIAPHERESIS. CIWA MAINTAINED, MEDICATED PER ORDERS. SLEEPS FOR SEVERAL HOURS IN AFTERNOON, VSS, GIRLFRIEND AT BEDSIDE DURING VISITING HOURS. SELF REPOSITIONS IN BED BUT REMAINS WEAK. INCONTINANT OF URINE DURING SHIFT AND ATTENDS CHANGED WHEN NEEDED. WILL CONTINUE TO MONITOR AND TREAT UNTIL CHANGE OF SHIFT.
[2020-09-25 04:30] LABS: BASOPHILS ABSOLUTE AUTO 0.04 K/mm3 (0.00-0.23); BASOPHILS PERCENT AUTO 1 % (0-2); EOSINOPHILS ABSOLUTE AUTO 0.16 K/mm3 (0.00-0.68); EOSINOPHILS PERCENT AUTO 4 % (0-6); Hematocrit 41.3 % (37.0-53.0); Hemoglobin 13.9 g/dL (13.5-17.5); IMMATURE GRAN ABSOLUTE AUTO 0.01 K/mm3 (0.00-0.10); IMMATURE GRAN PERCENT AUTO 0 % (0-1); LYMPHOCYTES ABSOLUTE AUTO 0.91 K/mm3 (0.84-5.20); LYMPHOCYTES PERCENT AUTO 22 % (21-46); MONOCYTES ABSOLUTE AUTO 0.51 K/mm3 (0.16-1.47); MONOCYTES PERCENT AUTO 12 % (4-13); Mean Corpuscular HGB 34.4 pg (26.0-34.0); Mean Corpuscular HGB Conc 33.7 g/dL (31.5-36.5); Mean Corpuscular Volume 102 fL (80-100); Mean Platelet Volume 11.9 fL (9.1-12.4); NEUTROPHILS ABSOLUTE AUTO 2.49 K/mm3 (1.96-9.15); NEUTROPHILS PERCENT AUTO 60 % (41-73); RDW Coefficient Variation 12.9 % (11.7-14.2); RDW Standard Deviation 48.4 fL (35.1-46.3); Red Blood Cell Count 4.04 M/mm3 (4.30-5.90); White Blood Cell Count 4.12 K/mm3 (4.00-11.30)
[2020-09-25 04:34] LABS: Platelet Count 30 K/mm3 (150-400)
--- NOTE | 2020-09-25 06:04 | NUR ---
SHIFT SUMMARY PT SLEPT T/O SHIFT. PT ALERT AND ORIENTED X 3. CONFUSED AT TIMES. PT INCONTINENT AT TIMES. BRIEF IN PLACE. PT ABLE TO ASSIST IN Q 2 TURNS AND BRIEF CHANGES. PT HYPERTENSIVE AT TIMES. HR STABLE. PT REPORTS NO CP OR PRESSURE. OXYGEN SATURATION MAINTAINED ABOVE 92% ON RA. CIWA SCORES STABLE AT 4. BED ALARM IN PLACE. WILL CONTINUE TO MONITOR UNTIL REPORT GIVEN TO DAYSHIFT RN.
--- NOTE | 2020-09-25 17:38 | NUR ---
SUMMARY PT CONFUSED OFF AND ON T/O SHIFT. CIWA RANGED 3-6 T/O DAY. WORKED W/THERAPY. STOOD AT BEDSIDE W/THERAPIST. MEDICATED ONCE DURING SHIFT FOR "ALL OVER PAIN" W/15MG IV TORADOL PER ORDERS. BED ALARM ON, PT OCCASIONALLY ATTEMPTS TO GET OUT OF BED. VISITOR AT BEDSIDE AT THIS TIME. PT DENIES ANY NEEDS. CALL LIGHT IN REACH.
[2020-09-26 04:26] LABS: BASOPHILS ABSOLUTE AUTO 0.03 K/mm3 (0.00-0.23); BASOPHILS PERCENT AUTO 1 % (0-2); EOSINOPHILS ABSOLUTE AUTO 0.13 K/mm3 (0.00-0.68); EOSINOPHILS PERCENT AUTO 4 % (0-6); Hemoglobin 13.4 g/dL (13.5-17.5); IMMATURE GRAN ABSOLUTE AUTO 0.02 K/mm3 (0.00-0.10); IMMATURE GRAN PERCENT AUTO 1 % (0-1); LYMPHOCYTES ABSOLUTE AUTO 0.68 K/mm3 (0.84-5.20); LYMPHOCYTES PERCENT AUTO 20 % (21-46); MONOCYTES ABSOLUTE AUTO 0.61 K/mm3 (0.16-1.47); MONOCYTES PERCENT AUTO 18 % (4-13); Mean Corpuscular HGB 35.3 pg (26.0-34.0); Mean Corpuscular HGB Conc 34.4 g/dL (31.5-36.5); Mean Corpuscular Volume 103 fL (80-100); NEUTROPHILS ABSOLUTE AUTO 1.97 K/mm3 (1.96-9.15); NEUTROPHILS PERCENT AUTO 57 % (41-73); RDW Coefficient Variation 13.1 % (11.7-14.2); White Blood Cell Count 3.44 K/mm3 (4.00-11.30)
[2020-09-26 04:30] LABS: Platelet Count 38 K/mm3 (150-400)
--- NOTE | 2020-09-26 05:46 | NUR ---
SHIFT SUMMARY PT SLEPT T/O SHIFT. PT ALERT AND ORIENTED X4. CONFUSED/FORGETFUL AT TIMES. BED ALARM IN PLACE. CIWA SCORE 2 T/0 SHIFT. HR STABLE. BP STABLE. PT REPORTS NO CP OR PRESSURE. OXYGEN SATURATION MAINTAINED ABOVE 92% ON RA. PT ABLE TO TURN SELF IN BED. PT USES URINAL, DEPENDS IN PLACE FOR INCONTINENCE. PT REFUSES SCD'S AT TIMES. WILL CONTINUE TO MONITOR UNTIL REPORT GIVEN TO DAYSHIFT RN.
--- NOTE | 2020-09-26 18:40 | NUR ---
SHIFT SUMMARY PT SLEEPING IN ROOM COMFORTABLY AT THIS TIME. NO ACUTE CHANGES IN STATUS T/O SHIFT. PT CIWA GREATLY RECUDED THIS SHIFT. PT DENIED ANY TREMORS. SOME SLIGHT TREMORS NOTED UPON STANDING TO SHOWER. PT DENIED OTHER ETOH SYMPTOMS. ABLE TO STAND AND WALK TO SHOWER W/ 1 PERS ASSIST AND 4WW. TOLERATED WELL SATS >92% ON RA. DENIED OTHER NEEDS. CALL [facility] IN REACH.
[2020-09-27 04:29] LABS: BASOPHILS ABSOLUTE AUTO 0.04 K/mm3 (0.00-0.23); BASOPHILS PERCENT AUTO 1 % (0-2); EOSINOPHILS ABSOLUTE AUTO 0.12 K/mm3 (0.00-0.68); EOSINOPHILS PERCENT AUTO 3 % (0-6); Hematocrit 41.4 % (37.0-53.0); Hemoglobin 13.6 g/dL (13.5-17.5); IMMATURE GRAN ABSOLUTE AUTO 0.03 K/mm3 (0.00-0.10); IMMATURE GRAN PERCENT AUTO 1 % (0-1); LYMPHOCYTES ABSOLUTE AUTO 0.63 K/mm3 (0.84-5.20); LYMPHOCYTES PERCENT AUTO 18 % (21-46); MONOCYTES ABSOLUTE AUTO 0.71 K/mm3 (0.16-1.47); MONOCYTES PERCENT AUTO 20 % (4-13); Mean Corpuscular HGB 33.8 pg (26.0-34.0); Mean Corpuscular HGB Conc 32.9 g/dL (31.5-36.5); Mean Corpuscular Volume 103 fL (80-100); NEUTROPHILS ABSOLUTE AUTO 1.98 K/mm3 (1.96-9.15); NEUTROPHILS PERCENT AUTO 57 % (41-73); RDW Coefficient Variation 13.4 % (11.7-14.2); RDW Standard Deviation 51.3 fL (35.1-46.3); Red Blood Cell Count 4.02 M/mm3 (4.30-5.90); White Blood Cell Count 3.51 K/mm3 (4.00-11.30)
[2020-09-27 04:34] LABS: Platelet Count 46 K/mm3 (150-400)
[2020-09-27 04:47] LABS: Albumin, Blood 2.7 g/dL (3.4-5.0); Anion Gap 3 mmol/L (6-16); Blood Urea Nitrogen 11 mg/dL (8-24); Bun/Creatinine Ratio 15.3 (12.0-20.0); CO2, Blood 30 mmol/L (21-32); Calcium, Blood 8.5 mg/dL (8.5-10.1); Chloride, Blood 103 mmol/L (98-108); Creatinine, Blood 0.72 mg/dL (0.60-1.20); Glomerular Filtration Rate >60 (60-); Glucose, Blood 84 mg/dL (70-99); Phosphorus, Blood 3.2 mg/dL (2.5-4.9); Potassium, Blood 4.4 mmol/L (3.5-5.5); Sodium, Blood 136 mmol/L (136-145)
--- NOTE | 2020-09-27 06:23 | NUR ---
SHIFT SUMMARY PT SLEPT T/O SHIFT. CIWA INCREASED TO 8 AT BEGINNING OF SHIFT. PT MEDICATED PER EMAR, REPORTS RELIEF, CIWA SCORE DECREASED TO 2. BP STABLE. HR STABLE. PT ALERT AND ORIENTED X 4. CONFUSED AT TIMES. BED ALARM IN PLACE. PT ABLE TO TURN SELF IN BED NEEDED. PT CONTINENT OF URINE AND ABLE TO USE URINAL. PT REPORTS NO CP OR PRESSURE. OXYGEN SATURATION MAINTAINED ABOVE 92% ON RA. WILL CONTINUE TO MONITOR UNTIL REPORT GIVEN TO DAYSHIFT RN.
--- NOTE | 2020-09-27 10:17 | NUR ---
PT LAYING IN BED AWAKE A/OX3, PLEASANT AND COOPERATIVE WITH CARE, FOLLOWS COMMANDS WELL, DENIES PAIN AT THIS TIME, STATE HE HAD A PRETTY GOOD NIGHT LAST NIGHT EXCEPT A BIT OF NOISE WOKE HIM SEVERAL TIMES, LUNGS ARE CLEAR T/O, RESP EVEN AND UNLABORED, NO COUGH NOTED, HRR, TELE IN PLACE, RUNNING SR PER MONITOR, SEE STRIP, NO EDEMA NOTED PPP+2, CAP REFILL <3SEC, VS STABLE, AFEBRILE, IV SITE IS CLEAR AND PATENT, BTX4, ABD FLAT SOFT NONTENDER, VOIDS WITHOUT DIFF, SKIN C/W/D, GENERAL WEAKNESS, SLIGHT TREMOR NOTED, CALL LIGHT IN REACH, TAKES PO MEDS WITHOUT DIFF.
--- NOTE | 2020-09-27 14:46 | NUR ---
PT DOING OK, HE SATES HE HAS HAD NO WITHDRAWL SYMPTOMS TODAY, FEELS GOOD AND THAT HE COULD GO HOME EXCEPT HE IS SO WEAK, HE DID WALK OUT IN THE [place]AG[place] WITH PT USING A WALKER, HE HAS BEEN MADE MEDICAL STATUS, CALL LIGHT IN REACH.
--- NOTE | 2020-09-27 15:00 | NUR ---
ASSUMED CARE AT THIS TIME, REPORT FROM MAURICE RICHARDS RN.
--- NOTE | 2020-09-28 04:02 | NUR ---
SUMMARY PATIENT IS ALERT AND ORIENTED. REPOSITIONS INDEPENDENTLY IN BED. PATIENT SLEPT MOST THE NIGHT. LAST CIWA SCORE OF 1. 02 SATS GREATER THAN 90% ON RA. VSS, NO ACUTE CHANGES. CALL LIGHT IN REACH.
[2020-09-28 05:04] LABS: Albumin, Blood 2.7 g/dL (3.4-5.0); Anion Gap 4 mmol/L (6-16); Blood Urea Nitrogen 13 mg/dL (8-24); Bun/Creatinine Ratio 21.1 (12.0-20.0); CO2, Blood 28 mmol/L (21-32); Calcium, Blood 8.6 mg/dL (8.5-10.1); Chloride, Blood 105 mmol/L (98-108); Creatinine, Blood 0.62 mg/dL (0.60-1.20); Glomerular Filtration Rate >60 (60-); Glucose, Blood 84 mg/dL (70-99); Phosphorus, Blood 3.8 mg/dL (2.5-4.9); Potassium, Blood 4.3 mmol/L (3.5-5.5); Sodium, Blood 137 mmol/L (136-145)
[2020-09-28] MEDS ORDERED: AZIT250 PO (11:41)
[2020-09-28] MEDS ORDERED: B-1100 M1 PO (11:41)
--- NOTE | 2020-09-28 13:16 | NUR ---
PT DISCHARGED TO HOME TODAY WITH DISCHARGE ORDERS, PT TO CONTINUE ABO AT HOME [facility] HE[facility]UR[facility] PROVIDED BY [employer] PT IS AWARE VERBALIZED UNDERSTANDING. DISCHARGE INFORMATION AND INSTRUCTION DISCLOSED WITH PT. PT WORKED WITH PT WITH HIS NEW WALKER AND DID WELL. PT ABLE TO AMBULATE IN THE UNIT ASSISTED. ALL BELONGINGS SENT WITH PT, PRESCRIPTION CALLED IN TO [facility]. PT ASSISTED VIA WHEECHAIR FOR TRANSPORT
== END 2020-09-28 12:20 | disposition home or self-care (01) | DRG 896 ==
LOC: ER 17:52 → PCU 17:53
PROVIDERS: Emergency Medicine; Family Medicine; Internal Medicine; ADMIT Internal Medicine
DX: F10.121 Alcohol abuse with intoxication delirium (principal); J12.9 Viral pneumonia, unspecified; Z90.49 Acquired absence of other specified parts of digestive tract; F10.288 Alcohol dependence with other alcohol-induced disorder; J20.9 Acute bronchitis, unspecified; F17.220 Nicotine dependence, chewing tobacco, uncomplicated; Z20.828 Contact with and (suspected) exposure to other viral communicable diseases; Y90.6 Blood alcohol level of 120-199 mg/100 ml; J45.909 Unspecified asthma, uncomplicated; K70.9 Alcoholic liver disease, unspecified; D69.6 Thrombocytopenia, unspecified; I10 Essential (primary) hypertension; E83.42 Hypomagnesemia; M62.81 Muscle weakness (generalized); E83.39 Other disorders of phosphorus metabolism
CPT/HCPCS: 0241U; 36415; 71045; 71260; 74177; 76705; 80048; 80053; 80069; 83605; 83690; 83735; 83880; 84484; 85025; 85027; 85060; 87040; 93005; 93010; 96361; 96365-59; 96366; 96367; 96375; 96376; 97110; 97116; 97161; 97166; 97530; 97535; 99285-25; A9270-GY; C9113; G0378; G0480; J0456; J0696; J1885; J2060; J2405; J3010; J3411; J3475; J7030; J7042; J7050; Q9967

== ENCOUNTER → 2022-01-03 | Outpatient (CLI) | payer OTHER ==
[~2022-01-03] MED LIST changes: +AZIT250 PO; +B-1100 M1 PO; +CEFD300 PO; +Inderal 20 mg T20 MG PO
[2022-01-03 12:29] LABS: BASOPHILS ABSOLUTE AUTO 0.04 K/mm3 (0.00-0.23); BASOPHILS PERCENT AUTO 1 % (0-2); EOSINOPHILS ABSOLUTE AUTO 0.09 K/mm3 (0.00-0.68); EOSINOPHILS PERCENT AUTO 1 % (0-6); Hematocrit 48.8 % (37.0-53.0); Hemoglobin 17.4 g/dL (13.5-17.5); IMMATURE GRAN ABSOLUTE AUTO 0.02 K/mm3 (0.00-0.10); IMMATURE GRAN PERCENT AUTO 0 % (0-1); LYMPHOCYTES ABSOLUTE AUTO 1.38 K/mm3 (0.84-5.20); LYMPHOCYTES PERCENT AUTO 21 % (21-46); MONOCYTES ABSOLUTE AUTO 0.82 K/mm3 (0.16-1.47); MONOCYTES PERCENT AUTO 13 % (4-13); Mean Corpuscular HGB 33.8 pg (26.0-34.0); Mean Corpuscular HGB Conc 35.7 g/dL (31.5-36.5); Mean Corpuscular Volume 95 fL (80-100); Mean Platelet Volume 10.2 fL (9.1-12.4); NEUTROPHILS ABSOLUTE AUTO 4.19 K/mm3 (1.96-9.15); NEUTROPHILS PERCENT AUTO 64 % (41-73); Platelet Count 91 K/mm3 (150-400); RDW Coefficient Variation 12.3 % (11.7-14.2); RDW Standard Deviation 42.9 fL (35.1-46.3); Red Blood Cell Count 5.15 M/mm3 (4.30-5.90); White Blood Cell Count 6.54 K/mm3 (4.00-11.30)
[2022-01-03 12:45] LABS: Alanine Aminotransfer (ALT/SGP 86 U/L (12-78); Albumin, Blood 3.9 g/dL (3.4-5.0); Albumin/Globulin Ratio 0.9 (0.8-1.8); Alk Phos 131 U/L (50-136); Anion Gap 7 mmol/L (6-16); Aspartate Aminotrans (AST/SGOT 99 U/L (12-37); Bilirubin, Total 1.6 mg/dL (0.1-1.0); Blood Urea Nitrogen 10 mg/dL (8-24); Bun/Creatinine Ratio 13.7 (12.0-20.0); CO2, Blood 26 mmol/L (21-32); Calcium, Blood 10.6 mg/dL (8.5-10.1); Chloride, Blood 103 mmol/L (98-108); Creatinine, Blood 0.73 mg/dL (0.60-1.20); Ethanol (Alcohol), Blood, Med 8 mg/dL; Globulin, Blood 4.4 g/dL (2.2-4.0); Glomerular Filtration Rate >60 (60-); Glucose, Blood 121 mg/dL (70-99); Magnesium, Blood 1.4 mg/dL (1.6-2.4); Sodium, Blood 136 mmol/L (136-145); Total Protein, Blood 8.3 g/dL (6.4-8.2)
== END ==
LOC: LAB SHORT 11:13
PROVIDERS: Nurse Practitioner Family
DX: F10.230 Alcohol dependence with withdrawal, uncomplicated (principal); I10 Essential (primary) hypertension
CPT/HCPCS: 80053; 83735; 85025; G0480

== ENCOUNTER 2022-07-20 09:52 | Emergency (ER) | payer OTHER ==
[~2022-07-20] VITALS: Ht 188 cm; Wt 117.9 kg
[2022-07-20 10:34] LABS: BASOPHILS ABSOLUTE AUTO 0.06 K/mm3 (0.00-0.23); BASOPHILS PERCENT AUTO 1 % (0-2); EOSINOPHILS ABSOLUTE AUTO 0.02 K/mm3 (0.00-0.68); EOSINOPHILS PERCENT AUTO 0 % (0-6); Hemoglobin 16.7 g/dL (13.5-17.5); IMMATURE GRAN ABSOLUTE AUTO 0.02 K/mm3 (0.00-0.10); IMMATURE GRAN PERCENT AUTO 0 % (0-1); LYMPHOCYTES ABSOLUTE AUTO 1.01 K/mm3 (0.84-5.20); LYMPHOCYTES PERCENT AUTO 20 % (21-46); MONOCYTES ABSOLUTE AUTO 0.46 K/mm3 (0.16-1.47); MONOCYTES PERCENT AUTO 9 % (4-13); Mean Corpuscular HGB 34.9 pg (26.0-34.0); Mean Corpuscular HGB Conc 36.3 g/dL (31.5-36.5); Mean Corpuscular Volume 96 fL (80-100); Mean Platelet Volume 9.8 fL (9.1-12.4); NEUTROPHILS PERCENT AUTO 70 % (41-73); Platelet Count 109 K/mm3 (150-400); RDW Coefficient Variation 11.8 % (11.7-14.2); RDW Standard Deviation 42.1 fL (35.1-46.3); Red Blood Cell Count 4.78 M/mm3 (4.30-5.90); White Blood Cell Count 5.17 K/mm3 (4.00-11.30)
[2022-07-20 10:51] LABS: Albumin, Blood 3.3 g/dL (3.4-5.0); Albumin/Globulin Ratio 0.8 (0.8-1.8); Bilirubin, Total 1.7 mg/dL (0.1-1.0); Bun/Creatinine Ratio 13.2 (12.0-20.0); Calcium, Blood 8.5 mg/dL (8.5-10.1); Creatinine, Blood 0.61 mg/dL (0.60-1.20); Globulin, Blood 4.4 g/dL (2.2-4.0); Potassium, Blood 4.2 mmol/L (3.5-5.5); Total Protein, Blood 7.7 g/dL (6.4-8.2)
[2022-07-20 11:47] LABS: Influenza A, PCR NEGATIVE (NEGATIVE); Influenza B, PCR NEGATIVE (NEGATIVE); Resp Syncytial Virus, PCR NEGATIVE (NEGATIVE); SARS-Cov-2 (COVID-19) PCR, MMC NEGATIVE (NEGATIVE)
[2022-07-20] MEDS ORDERED: DOXY100 PO (13:15)
== END 2022-07-20 13:34 | disposition home or self-care (01) ==
LOC: ER 09:52
PROVIDERS: Physician Assistant
DX: J20.9 Acute bronchitis, unspecified (principal); J42 Unspecified chronic bronchitis; K70.30 Alcoholic cirrhosis of liver without ascites; F10.10 Alcohol abuse, uncomplicated; I10 Essential (primary) hypertension; J45.909 Unspecified asthma, uncomplicated; Z20.822 Contact with and (suspected) exposure to COVID-19; Z79.899 Other long term (current) drug therapy; Z87.891 Personal history of nicotine dependence
CPT/HCPCS: 0241U; 36415; 71046; 74177; 80053; 85025; 96374-59; 99285-25; A9270; J1885; J7120; Q9967

== ENCOUNTER 2022-07-27 01:37 | Inpatient (IN) | payer OTHER ==
[~2022-07-27] VITALS: Ht 188 cm; Wt 123.2 kg
[~2022-07-27 01:37] MED LIST changes: +DOXY100 PO
[2022-07-27] MEDS ORDERED: NEURONTIN300 MG PO (06:29)
[2022-07-27] MEDS ORDERED: Vistaril50 MG PO (06:29)
[2022-07-27] MEDS ORDERED: CLONIDINE (06:29)
[2022-07-27] MEDS ORDERED: METOPROLOL TART25 MG PO (06:30)
[2022-07-27] MEDS ORDERED: Ativan1 MG PO (06:30)
[2022-07-27] MEDS ORDERED: TRAZ50 PO (06:31)
[2022-07-27 06:44] LABS: BASOPHILS ABSOLUTE AUTO 0.03 K/mm3 (0.00-0.23); BASOPHILS PERCENT AUTO 1 % (0-2); EOSINOPHILS ABSOLUTE AUTO 0.09 K/mm3 (0.00-0.68); EOSINOPHILS PERCENT AUTO 3 % (0-6); Hematocrit 39.9 % (37.0-53.0); Hemoglobin 14.2 g/dL (13.5-17.5); IMMATURE GRAN ABSOLUTE AUTO 0.01 K/mm3 (0.00-0.10); IMMATURE GRAN PERCENT AUTO 0 % (0-1); LYMPHOCYTES ABSOLUTE AUTO 0.63 K/mm3 (0.84-5.20); LYMPHOCYTES PERCENT AUTO 21 % (21-46); MONOCYTES ABSOLUTE AUTO 0.38 K/mm3 (0.16-1.47); MONOCYTES PERCENT AUTO 13 % (4-13); Mean Corpuscular HGB 35.9 pg (26.0-34.0); Mean Corpuscular HGB Conc 35.6 g/dL (31.5-36.5); Mean Corpuscular Volume 101 fL (80-100); Mean Platelet Volume 11.4 fL (9.1-12.4); NEUTROPHILS ABSOLUTE AUTO 1.83 K/mm3 (1.96-9.15); NEUTROPHILS PERCENT AUTO 62 % (41-73); RDW Coefficient Variation 12.6 % (11.7-14.2); RDW Standard Deviation 47.1 fL (35.1-46.3); Red Blood Cell Count 3.96 M/mm3 (4.30-5.90); White Blood Cell Count 2.97 K/mm3 (4.00-11.30)
[2022-07-27 06:55] LABS: Platelet Count 38 K/mm3 (150-400)
[2022-07-27 07:02] LABS: Albumin, Blood 2.9 g/dL (3.4-5.0); Albumin/Globulin Ratio 0.8 (0.8-1.8); Bilirubin, Total 2.6 mg/dL (0.1-1.0); Bun/Creatinine Ratio 16.8 (12.0-20.0); Calcium, Blood 8.6 mg/dL (8.5-10.1); Creatinine, Blood 0.48 mg/dL (0.60-1.20); Globulin, Blood 3.8 g/dL (2.2-4.0); Total Protein, Blood 6.7 g/dL (6.4-8.2)
--- NOTE | 2022-07-27 08:00 | NUR ---
ASSUMED CARE OF PT AT 0800 PT AGITATED AT CONFUSED. MUMBLES INCOHERANT WORDS. PT PUT IN RESTRAINTS TO PROTECT LINES AND STAFF. PT IS HYPERTENSIVE AT THIS TIME WITH INTERMITENT SLEEP EPISODES WITH BP AND HR WNL. NO IV FLUIDS AT THIS TIME, WAITING FOR ORDERS PT JUST ADMITTED FROM ER. PT UNABLE TO CONTROL BLADDER, URINATING INFREQUENTLY. BLADDER SCAN SHOWED >950 MLS. ORDER FOR STRIGHT CATHETERZATION MET WITH 1550 MLS OUT. BRIEF PLACED ON PT. LUNG SOUNDS CLEAR BILATERALLY. SEE ASSESSMENT FOR FURTHER INFORMATION.
[2022-07-27 10:54] LABS: International Normalized Ratio 1.54; Prothrombin Time Results 15.7 Sec (9.7-11.5)
--- NOTE | 2022-07-27 17:38 | NUR ---
END OF SHIFT SUMMARY PT CONFUSED AND DISORIENTED ALL SHIFT. WHEN AWAKE PT WILL MUMBLE INCHERENTLY. DOES NOT ANSWER QUESTIONS APPROPIRATELY. PRESEDEX AT 5 MCG/KG/MIN. NO PO MEDICATIONS OR FLUIDS OFFERED DUE TO MENTAL STATUS AND UNKNOWN SWALLOW STATUS. PT STRAIGHT CATHED AT ADMISSION TO ICU WITH 1550 OUT WITH 2 SOAKED BRIEFS THROUGHOUT DAY. URINE YELLOW WITH FOUL SMELL. NO BM THIS SHIFT. NS TKO AT 10 MLS/HR. APNEIC EPISODES WHILE SLEEPING. NC AT 4L WITH 96% SAT. LUNG SOUNDS CLEAR BILATERALLY THROUGHOUT. BP AND HR WNL. PT IN RESTRAINTS DUE TO CONFUSION, GRABBING AND PINCHING STAFF, WELL CHANCES OF PULLING OUT LINES. WILL CONTINUE TO MONITOR UNTIL SHIFT REPORT GIVEN TO PASTA MAKER.
[2022-07-28 03:28] LABS: BASOPHILS ABSOLUTE AUTO 0.02 K/mm3 (0.00-0.23); BASOPHILS PERCENT AUTO 0 % (0-2); EOSINOPHILS ABSOLUTE AUTO 0.07 K/mm3 (0.00-0.68); EOSINOPHILS PERCENT AUTO 1 % (0-6); Hematocrit 43.5 % (37.0-53.0); IMMATURE GRAN ABSOLUTE AUTO 0.03 K/mm3 (0.00-0.10); IMMATURE GRAN PERCENT AUTO 1 % (0-1); LYMPHOCYTES PERCENT AUTO 8 % (21-46); MONOCYTES ABSOLUTE AUTO 0.53 K/mm3 (0.16-1.47); MONOCYTES PERCENT AUTO 11 % (4-13); Mean Corpuscular HGB 35.3 pg (26.0-34.0); Mean Corpuscular HGB Conc 34.5 g/dL (31.5-36.5); Mean Corpuscular Volume 102 fL (80-100); Mean Platelet Volume 10.3 fL (9.1-12.4); NEUTROPHILS ABSOLUTE AUTO 3.78 K/mm3 (1.96-9.15); NEUTROPHILS PERCENT AUTO 78 % (41-73); RDW Coefficient Variation 12.5 % (11.7-14.2); RDW Standard Deviation 46.9 fL (35.1-46.3); Red Blood Cell Count 4.25 M/mm3 (4.30-5.90); White Blood Cell Count 4.83 K/mm3 (4.00-11.30)
[2022-07-28 03:37] LABS: Platelet Count 35 K/mm3 (150-400)
[2022-07-28 03:44] LABS: Albumin, Blood 2.9 g/dL (3.4-5.0); Albumin/Globulin Ratio 0.7 (0.8-1.8); Bilirubin, Total 3.6 mg/dL (0.1-1.0); Bun/Creatinine Ratio 15.3 (12.0-20.0); Calcium, Blood 8.1 mg/dL (8.5-10.1); Creatinine, Blood 0.46 mg/dL (0.60-1.20); Magnesium, Blood 1.9 mg/dL (1.6-2.4); Phosphorus, Blood 2.5 mg/dL (2.5-4.9); Potassium, Blood 4.3 mmol/L (3.5-5.5); Total Protein, Blood 6.9 g/dL (6.4-8.2)
--- NOTE | 2022-07-28 05:45 | NUR ---
SHIFT SUMMARY: PT. REMAINED STABLE OVERNIGHT, ALTHOUGH SLIGHTLY HYPERTENSIVE WITH STIMULATION. PT HAS BEEN IN NSR AND HAS SATTED ABOVE 95% ON 4L NC. PT. WAS GIVEN ATIVAN X3 OVERNIGHT FOR FITS OF AGITATION AND HALLUCINATIONS. PRECEDEX REMAINS AT 0.7 IT WAS ON AM SHIFT. PT. HAS HAD MULTIPLE INCONTINENT VOIDS OVERNIGHT THAT SATURATED THE BED. PT. RESTING COMFORTABLE IN BED AT THIS TIME.
[2022-07-28 09:01] LABS: Source, Urine Foley catheter
[2022-07-28 09:05] LABS: Appearance, Urine Clear (Clear); Blood, Urine 1+ (Neg); Color, Urine Amber (P-Yellow); Glucose Qualitative, Urine Neg (Neg); Ketones, Urine 2+ (Neg); Leukocyte Esterase, Urine 1+ (Neg); Nitrite, Urine Neg (Neg); Protein, Urine 2+ (Neg); Specific Gravity, Urine 1.015 (1.003-1.022); Urobilinogen, Urine 2+ (Normal)
--- NOTE | 2022-07-28 09:13 | NUR ---
ASSUMED CARE OF PT, REPORT RCV'D FROM W[facility] INGRAM. PT DISORIENTED, FAILS TO OPEN EYES ON COMMAND OR FOLLOW VERBAL COMMANDS. PT APPEARS TO HAVE VISUAL HALLUCINATIONS, MUMBLES INCOHERENTLY. PT OCCASIONALLY SITS UPRIGHT IN BED CONFUSED AND YELLING OUT. PRECEDEX @0.7 MCG/KG/HR. CIWA 24 AT THIS TIME. SATS>90% ON 4L NC. MARIE PLACED D/T RETENTION. SEE FULL SHIFT ASSESSMENT.
[2022-07-28 09:16] LABS: Bilirubin, Urine 1+ (Neg)
[2022-07-28 09:38] LABS: Bacteria Few /hpf; Red Blood Cells, Urine 0-2 /hpf (0-2); Squamous Epithelial Cells Few /hpf (Few); Transitional Epithelial Cells Few /hpf (0-Rare)
[2022-07-28 09:41] LABS: White Blood Cells, Urine 0-2 /hpf (0-5)
--- NOTE | 2022-07-28 17:24 | NUR ---
TOOK OVER CARE OF PT, PT ON PRECEDEX GTT AT 0.7
--- NOTE | 2022-07-28 18:04 | NUR ---
SHIFT SUMMARY NO ACUTE CHANGES THIS SHIFT. PT TREATED WITH ATIVAN PER CIWA PROTOCOL. PT CONTINUES TO HAVE HALLUCINATIONS, FAILS TO FOLLOW COMMANDS, INCOMPREHENSIBLE SPEECH. PT REMAINS IN BILATERAL SOFT WRIST RESTRAINTS AND AMY TO PROTECT LINES/CORDS AND PREVENT UNSAFE AMBULATION. WILL REPORT TO ONCOMING NURSE.
--- NOTE | 2022-07-28 19:29 | NUR ---
ASSUMED CARE: PT CURRENTLY WIGGLING AROUND IN BED. ATTEMPTED TO ASK ORIENTATION QUESTIONS WITH NO RESPONSE. PT MOVES SPONTANEOUSLY AND DOES NOT FOLLOW COMMANDS. PRECEDEX AT 0.7 AT THIS TIME.
--- NOTE | 2022-07-28 20:41 | NUR ---
UPDATE: INFORMED DR. SMITH THAT PT IS MAXXED OUT ON PRECEDEX AT 0.7. HEART RATE IN 80-90s, CIWA SCALE IN PLACE AND RN IS HAVING TO ADMINISTER 3MG ATIVAN FREQUENTLY. DR. SMITH STATED TO INCREASED PRECEDEX BY 0.2 TO A MAX OF 1.2
--- NOTE | 2022-07-28 21:42 | NUR ---
UPDATE: INFORMED DR. SMITH THAT PATIENT WAS GIVEN PRN HYDRALAZINE WHICH WORKED FOR ABOUT AN HOUR AND SBP ABOVE 160. IFNORMED DR THAT PT HAS HX OF HTN AND TAKES CLONIDINE AT HOME. NEW ORDERS ENTERED.
[2022-07-29 04:06] LABS: Hematocrit 43.6 % (37.0-53.0); Hemoglobin 14.9 g/dL (13.5-17.5); Mean Corpuscular HGB 34.8 pg (26.0-34.0); Mean Corpuscular HGB Conc 34.2 g/dL (31.5-36.5); Mean Corpuscular Volume 102 fL (80-100); Mean Platelet Volume 11.6 fL (9.1-12.4); RDW Coefficient Variation 12.7 % (11.7-14.2); RDW Standard Deviation 47.4 fL (35.1-46.3); Red Blood Cell Count 4.28 M/mm3 (4.30-5.90); White Blood Cell Count 5.75 K/mm3 (4.00-11.30)
[2022-07-29 04:08] LABS: Platelet Count 46 K/mm3 (150-400)
[2022-07-29 04:23] LABS: Albumin, Blood 2.7 g/dL (3.4-5.0); Albumin/Globulin Ratio 0.7 (0.8-1.8); Bun/Creatinine Ratio 17.1 (12.0-20.0); Calcium, Blood 8.1 mg/dL (8.5-10.1); Creatinine, Blood 0.76 mg/dL (0.60-1.20); Potassium, Blood 4.1 mmol/L (3.5-5.5); Total Protein, Blood 6.7 g/dL (6.4-8.2)
--- NOTE | 2022-07-29 05:54 | NUR ---
SHIFT SUMMARY: PT AGITATED PERIODICALLY THROUGHOUT NIGHT. ATIVAN GIVEN. SEE CIWA SCALE. HYDRALAZINE INEFFECTIVE FOR BP, ADDED CLONIDINE PATCH TO R CHEST AND PRN LABETALOL. PRECEDEX @ MAX 1.2. IVS INFILTRATED AND REMOVED AND STARTED NEW ONES IN RIGHT AND LEFT ARMS. FRANK PUT OUT 725ML OVER SHIFT. BILATERAL SOFT WRIST RESTRAINTS AND AMY IN PLACE.
--- NOTE | 2022-07-29 08:15 | NUR ---
PT WITH SONOROUS RESPIRATIONS, NOT AROUSABLE, TO VISIT, REQUESTED FLUIDS, PRECEDEX TO 1MCG PER ORDERS.
--- NOTE | 2022-07-29 10:03 | NUR ---
[facility]: RECEIVED CALL FROM RN AT [facility]. SHE STATED THE PT IS "COMPLETE" WITH THEIR PROGRAM AND WILL NOT BE RETURNING TO [facility] UPON HOSPITAL DISCHARGE.
--- NOTE | 2022-07-29 12:06 | NUR ---
SUNITA CONTINUED TO BE VERY SONOROUS WITH EVIDENT SLEEP APNEA, A NASAL TRUMPET WAS PLACED IN THE RIGHT NARE WITH GOOD RELIEF, DEEP ORAL HYGIENE WAS COMPLETED WELL,WHICH INITIATED SOME BLEEDING. PRESSURE WAS HELD TO THE RIGHT LOWER LIP WITH GOOD RESULTS. HE CONTINUED WITH THE SONOROUS RESPIRATIONS AND APNEA, CPAP WAS ORDERED. R/T HAS BEEN PLACING AND ADJUSTING THE CPAP. PT DID GET QUITE RESTLESS AND FIDGETY DURING THE PROCESS, WAS MEDICATED WITH SOME ATIVAN. THE PRECEDEX IS AT 0.7MCG/KG AT THIS TIME.
--- NOTE | 2022-07-29 13:51 | NUR ---
SUNITA IS RESTLESS, ALTHOUGH LESS OBTUNDED THAN HE WAS EARLIER. HE WILL AROUSE SLIGHTLY AND MUTTER WORDS, HE DOESN'T FOLLOW ANY COMMANDS. HE HAS BEEN MEDI- CATED FOR HIS BLOOD PRESSURE TWICE WITH GOOD RESULTS. HE HAS BEEN LOWERED ON THE PRECEDEX TO 0.7MCG/KG AND HAS BEEN MEDICATED TWICE WITH ATIVAN. HE IS ABLE TO COUGH AND GAG, MOVES ALL EXTREMITIES WELL. PULLS AGAINST THE RESTRAINTS WHEN HE IS ROUSED, TRIES TO PUSH THE SCD'S OFF WITH THE OPPOSITE FOOT. HE WILL THEN SETTLE QUICKLY HE ROUSES. CPAP APPEARS TO BE WORKING WELL. NO MORE BLEEDING FROM THE MOUTH.
--- NOTE | 2022-07-29 17:52 | NUR ---
SUNITA IS RESTING WELL WITH THE CPAP ON @ 6 WITH 4L BLEED IN. HE IS MORE REST- FUL AND PEACEFUL APPEARING. HE WOKE UP AND ACKNOWLEDGED BEING IN THE HOSPITAL, RETURNED TO SLEEP, HE HASN'T HAD ANY ATIVAN FOR QUITE SOME TIME, PRECEDEX IS AT 0.7MCG/KG. PG IN THE RIGHT UPPER ARM, PIV IN LEFT AC, ALL FLUSHED AND WORKED WELL T/O THIS SHIFT. URINE OUTPUT REMAINS LOW DESPITE ADDING ON FLUIDS.
--- NOTE | 2022-07-30 06:14 | NUR ---
END OF SHIFT SUMMARY PT HAS BEEN SIGNIFICANTLY WITHDRAWING ALTHOUGH PT HAS BEEN ABLE TO COMUNICATE MORE CLEARLY THEN WHAT REPORTED. HIS CIWA HAS BEEN 16-18. i ATTEMPTED TO DO BEDSIDE SWALLOW AT START OF SHIFT BUT IT SEEM TO CAUSE SIGNIFICANT PAIN HE STATED THE ROOF OF MOUTH WAS SORE AND GRIMISED HE SWALLOWED NO SIGN OF ASPERATION. I ATTEMPTED AGAIN WHEN HE WOKE AND REQUESTED WATER HE PASSED A BEDSIDE SWALLOW AND I WAS ABLE TO GIVE HIM PRN LIBRUM. HE HAS NEED QUITE A BIT OF ATIVAN THROUGH THE COURSE OF SHIFT. I HAVE HAD TO REPLACE RESTRAINTS 3 TIMES BECAUSE HE HAS BEEN ABLE TO GET OFF BECAUSE THE CLASPS ARENT STRONG ENOUGHT TO HOLD AGAINST RESTRAINT. WILL CONTINUE TO MONITORE AND REPORT TO ONCOMING RN
--- NOTE | 2022-07-30 09:58 | NUR ---
SUNITA IS ON PRECEDEX @ 0.7 MCG/KG, HE IS RESTLESS AND AGITATED. HE HAS BEEN GIVEN ATIVAN AND PHENOBARBITAL WITH NO CHANGE. HE HAS COME OUT OF HIS RESTRAINTS AND PULLED OFF HIS OXYGEN MASK SEVERAL TIMES. HE WILL BE APNEIC FROM KATHY THEN BE SCREAMING IN THE NEXT BREATH. HE CONTINUES TO DISROBE. HE IS NOT ABLE TO BE REORIENTED. HE WILL JUST CURSE AND YELL WHEN HE IS SPOKEN TO.
--- NOTE | 2022-07-30 13:47 | NUR ---
SUNITA IS FINALLY RESTING. THIS IS THE FIRST TIME HE HAS BEEN RESTFUL. HE WAS GIVEN PHENOBARBITOL AND ATIVAN. HE WAS TRYING TO GET OUT OF BED, CURSING AND YELLING, YET ONLY WOULD HALF OPEN HIS EYES.
--- NOTE | 2022-07-30 17:58 | NUR ---
SUNITA HAS BEEN UNABLE TO BE REORIENTED TODAY. HE HAS ANSWERED THAT THE PRESIDENT IS [place], THAT HE IS "NOT" AT THE HOSPITAL. HE IS UNABLE TO STATE THE DATE, NOR TOWN. HE HAS ADMITTED TO A HEADACHE, NO N/V, SHAKES VISIBLE AND AGITATION HIGH. HE IS SONOROUS AT TIMES BUT THEN IS TRYING TO TALK AT THE SAME TIME. HE HAS BEEN MEDICATED WITH ATIVAN, PHENOBARBITAL, HYDRALAZINE AND LABE- TALOL. HE CONTINUES ON PRECEDEX @ 0.7MCG/KG HE WAS NEVER AT THE POINT OF BEING ABLE TO TITRATE DOWN. HE CONTINUES TO TRY TO PULL OFF THE RESTRAINTS, THE COVERS, HIS CATHETER, HIS OXYGEN. ALTHOUGH HE DOESN'T PULL ON HIS IV LINES OR TUBING. HE HAS NOT RESPONDED TO THE BLOOD PRESSURE MEDICATIONS TODAY.
--- NOTE | 2022-07-30 20:24 | NUR ---
ASSUMED CARE OF PT AT 1900. PT RESPONDS TO PAIN AND VERBAL STIMULI. PT MOANS AND IS MOVING ALL EXTERMITIES. UNABLE TO COMMUNICATE NEEDS. GAG/COUGH REFLEX PRESENT. PUPILS EQUAL AND REACTIVE TO LIGHT, YELLOW SCLERA NOTED. PT CONTINUES TO BE ON PRECEDEX AT 0.7MCG/KG/HR. PT IS IN SR WITH HR IN THE 80-90'S. PT IS HYPERTENSIVE SBP 180-200'S, [employer] HAND NOTIFIED, ORDERS GIVEN. PT REMAINS NPO D/T HIGH RISK OF ASPIRATION. ABD ROUNDED, DISTENDED AND FIRM. MARIE PATENT AND DRAINING TO GRAVITY, ARDEN COLORED URINE NOTED. ABNORMAL PENILE CURVATURE NOTED, CATH STAT LOCK RELOCATED TO ALLEVIATE TENSION. TO BILATERAL WRIST RESTRAINTS IN PLACE, HE WILL PULL ON LINES AND MARIE. SCD'S IN PLACE. WILL CONTINUE TO MONITOR PT T/O SHIFT.
--- NOTE | 2022-07-31 02:46 | NUR ---
UPDATE: PT HAD A 8 BEAT RUN OF VTACH AT 0240. CURRENTLY IN SR WITH HR IN THE 80-90'S.
[2022-07-31 03:30] LABS: Hematocrit 45.3 % (37.0-53.0); Hemoglobin 15.4 g/dL (13.5-17.5)
[2022-07-31 03:42] LABS: International Normalized Ratio 1.37; Prothrombin Time Results 14.1 Sec (9.7-11.5)
[2022-07-31 03:43] LABS: Bun/Creatinine Ratio 27.7 (12.0-20.0); Calcium, Blood 8.2 mg/dL (8.5-10.1); Creatinine, Blood 0.9 mg/dL (0.60-1.20); Phosphorus, Blood 2.5 mg/dL (2.5-4.9); Potassium, Blood 4.2 mmol/L (3.5-5.5)
--- NOTE | 2022-07-31 05:30 | NUR ---
SHIFT SUMMARY: PT CONTINUES TO BE SEDATED WITH PRECEDEX AT 0.6MCG/KG/HR. PT IS MOVING ALL EXTREMETIES, SHIFTING HIMSELF DOWN IN BED AND FROM SIDE TO SIDE. PT RESPONDS TO VERBAL AND PAINFUL STIMULI. FOLLOWS COMMANDS OCCASIONALLY. GAG/COUGH REFLEX PRESENT. ATIVAN GIVEN ONCE THIS SHIFT FOR AGITATION. PT CONTINUES TO BE ON 2L OF O2 VIA NC. PT SNORING, AT TIMES CAN BE APNEIC, NO LONGER THAN 10 SECOUNDS. PT HAS BEEN IN SR WITH HR IN THE 80-90'S. BP ELEVATED, HYDRALAZINE, LABETALOL, AND CATAPRESS ON BOARD, WITH LITTLE EFFECT. MARIE PATENT, DRAINING TO GRAVITY, 900ML OF ARDEN COLOR URINE. PT CONTINUES TO BE IN BILAT SWR AND AMY VEST. WILL CONTINUE TO MONITOR PT UNTIL REPORT IS GIVEN TO ONCOMING SHIFT.
--- NOTE | 2022-07-31 07:52 | NUR ---
CARE OF PT ASSUMED AT 0700, BEDSIDE REPORT TAKEN. PT SEDATED ON PRECEDEX GTT AT 0.6MCG. PT SLEEPING, RESTLESS, MOVES FREQ IN BED. PLAN: WILL DECREASE PRECEDEX TOLERATED. IF SEDATION CAN BE LIGHTENED AND PT ALERT, POSSIBLE OOB TO CHAIR/START PO.
--- NOTE | 2022-07-31 10:36 | NUR ---
PT MEDICATED W [id number] FOR SBP >200, DBP >100. PT WITH SLEEP APNEA; CPAP PLACED ON PT.
--- NOTE | 2022-07-31 16:17 | NUR ---
BP STARTED TRENDING DOWN ALONG WITH HR AROUND 1300, PRECEDEX TITRATED DOWN AND OFF AT 1400. PT GIVEN FULL BED BATH. DURING BATH PT WOULD MUMBLE "WHERE THE F- AM I AT?" THEN FELL QUICKLY BACK TO SLEEP. PT DID NOT FOLLOW COMMANDS. PRECEDEX REMAINS OFF, PT ASLEEP NOW. PT HYPERTENSIVE AGAIN. WILL ASK ABOUT IV FLUIDS PT REMAINS NPO D/T SEDATION.
--- NOTE | 2022-07-31 18:02 | NUR ---
PT STARTING TO WAKE UP, ASKING SOME APPROPRIATE QUESTIONS, SPEECH VERY GARBLED/SLURRED, FALLS QUICKLY BACK TO SLEEP AFTER QUESTIONS.
--- NOTE | 2022-07-31 18:37 | NUR ---
PT ABLE TO HOLD APPROPRIATE CONVERSATION. RESTRAINTS REMOVED AT 1700. PT MEDICATED FOR HTN. CIWA 7.
[2022-08-01 05:33] LABS: Albumin, Blood 2.4 g/dL (3.4-5.0); Anion Gap 4 mmol/L (6-16); Blood Urea Nitrogen 25 mg/dL (8-24); Bun/Creatinine Ratio 25.4 (12.0-20.0); CO2, Blood 30 mmol/L (21-32); Calcium, Blood 8.2 mg/dL (8.5-10.1); Chloride, Blood 108 mmol/L (98-108); Creatinine, Blood 0.98 mg/dL (0.60-1.20); Glomerular Filtration Rate 91 (60-); Glucose, Blood 118 mg/dL (70-99); Phosphorus, Blood 2.6 mg/dL (2.5-4.9); Potassium, Blood 3.8 mmol/L (3.5-5.5); Sodium, Blood 142 mmol/L (136-145)
--- NOTE | 2022-08-01 07:22 | NUR ---
CARE OF PT ASSUMED AT 0700. PT WIDE AWAKE, ALERT, AND ORIENTED. PRECEDEX AT 0.2MCG, TURNED OFF. NS AT 75CC/HR. PT ABLE TO SWALLOW SAFELY. PT C/O PAIN TO BACK 02/21 2ND TO LAYING IN BED FOR 5 DAYS AND REQUEST SOMETHING FOR PAIN. WILL UPDATE DR SMITH SHORTLY. PT DOES REPORT ANXIETY, HAS TREMORS, AND SEES STRINGS HANGING FROM WALL, BUT PT REMAINS VERY CALM AND APPROPRIATE. WILL GIVE LIBRIUM FOR W/D SYMPTOMS.
[2022-08-01] MEDS ORDERED: NARCAN4 M1 NS (12:18)
[2022-08-01] MEDS ORDERED: Naltrexone HCl50 MG PO (12:19)
--- NOTE | 2022-08-01 12:26 | NUR ---
ADAPT BROUGHT PT'S BELONGINGS TO HIM. APROX 1,120 IN ARANDA PLACED IN SAFE BY SECURITY ALONG WITH WALLET. DR SMITH IN TO SEE PT. PT CHANGED TO MED STATUS W/O TELE. FRANK DC'D. IV FLUIDS DC'D. PT OOB TO CHAIR, VERY WEAK. PHYSICAL THERAPY WORKING W PT NOW.
[2022-08-01] MEDS ORDERED: SULTRIDS PO (13:51)
--- NOTE | 2022-08-01 14:14 | NUR ---
PT'S HOME MEDS SENT TO PHARMACY; RECEIPT IN CHART
--- NOTE | 2022-08-01 15:26 | NUR ---
REPORT GIVEN TO DEMARIO GODOY, PT TRANSFERED UP TO 340 IN STABLE CONDITION. BELONGINGS TRANSFERED UP W PT.
--- NOTE | 2022-08-01 18:15 | NUR ---
SHIFT SUMMARY A/OX3, FORGETFUL, VISUAL/AUDITORY HALLUCINATIONS. 2P ASSIST WITH FWW AND GB. BED ALARM ON FOR SAFETY. BM THIS SHIFT. CIWAS 6-9 T/O THE DAY. VSS, NO ACUTE CHANGES AT THIS TIME. BED IN LOWEST POSITION WITH CALL LIGHT IN REACH. WILL CONTINUE TO MONITOR AND REPORT TO ONCOMING RN.
[2022-08-02 05:55] LABS: Hematocrit 40.6 % (37.0-53.0); Hemoglobin 13.7 g/dL (13.5-17.5); Mean Corpuscular HGB 35.2 pg (26.0-34.0); Mean Corpuscular HGB Conc 33.7 g/dL (31.5-36.5); Mean Corpuscular Volume 104 fL (80-100); Mean Platelet Volume 10.9 fL (9.1-12.4); Platelet Count 79 K/mm3 (150-400); RDW Coefficient Variation 13.1 % (11.7-14.2); RDW Standard Deviation 50.5 fL (35.1-46.3); Red Blood Cell Count 3.89 M/mm3 (4.30-5.90); White Blood Cell Count 4.11 K/mm3 (4.00-11.30)
[2022-08-02 06:08] LABS: Albumin, Blood 2.5 g/dL (3.4-5.0); Albumin/Globulin Ratio 0.7 (0.8-1.8); Bilirubin, Total 2.3 mg/dL (0.1-1.0); Bun/Creatinine Ratio 22.8 (12.0-20.0); Calcium, Blood 8.5 mg/dL (8.5-10.1); Creatinine, Blood 0.97 mg/dL (0.60-1.20); Globulin, Blood 3.6 g/dL (2.2-4.0); Potassium, Blood 3.5 mmol/L (3.5-5.5); Total Protein, Blood 6.1 g/dL (6.4-8.2)
[2022-08-02 06:12] LABS: International Normalized Ratio 1.31; Prothrombin Time Results 13.5 Sec (9.7-11.5)
--- NOTE | 2022-08-02 06:47 | NUR ---
SHIFT SUMMARY - PT MEDICATED X1 WITH LIBRIUM DUE TO CIWA SCORE. PT REQUIRED A 2 PERSON ASSIST, WITH WALKER, AND GAIT BELT TO STAND AT THE BEDSIDE FOR URINATION. PT GETS IRRITATED, HE FEELS HE CAN MANAGE ON HIS OWN, HOWEVER PT IS VERY UNSTEADY ON HIS FEET. OTHERWISE, PT HAS BEEN SLEEPING THROUGHOUT MOST OF THE NIGHT. CALL LIGHT WITHIN REACH. BED IN LOW POSITION. WILL CONTINUE TO MONITOR UNTIL AM SHIFT CHANGE.
--- NOTE | 2022-08-02 17:58 | NUR ---
SHIFT SUMMARY PT RESTING QUIETLY AT START OF SHIFT. BED ALARM ON FOR SAFETY. PER SHIFT REPORT, PT IS IMPULSIVE WITH CONFUSION. HX OF ETOH ABUSE, ADMITTED FROM [facility]. PT UP TO BSC WITH 2P MAX ASSIST USING FWW AND GB, FOR BM. PT IS VERY WEAK AND UNSTEADY. DIFFICULT TO FOLLOW DIRECTIONS. PT HAS POOR DEXTERITY, BUT DOES TRY TO EAT HIS MEALS W/O HELP. C/O COYNE THIS AM; DR SMITH NOTIFIED OF PT'S REQUEST FOR TYLENOL. GIVEN WITH GOOD EFFECT. PT ABLE TO WORK WITH PT/OT, GETTING OOB TO CHAIR AND BACK. PT IS FORGETFUL, NOT USING CALL LT FOR ASSIST, SETTING OFF BED AND CHAIR ALARMS ATTEMPTING TO GET UP. RESTING QUIETLY AT THIS TIME, DENIED FURTHER NEEDS. CALL LT IN REACH.
--- NOTE | 2022-08-03 03:15 | NUR ---
i on accident hit right arm for bp location and saved it before i could change it to left side. i let RN Michelle know it was left side not right side
--- NOTE | 2022-08-03 16:07 | NUR ---
SHIFT SUMMARY PT ALERT AND ORIENTED, CALLS APPROPRIATELY. PT UP OOB TO BEDSIDE COMMODE, X 2 ASSIST WITH GAITBELT AND FWW. PT STATES MOVEMENT IMPROVED FROM YESTERDAY. PT STATES HES STILL FEELING THE AFFECTS OF LIBRIUM, ASKS NOT TO RECEIVE THAT MEDCIATION ANYMORE. NO NEEDS VOICED AT THIS TIME. WILL CONTINUE TO MONITOR. CALL LIGHT WITHIN REACH.
--- NOTE | 2022-08-04 03:28 | NUR ---
Patient A/ox4 this shift and pleasant/cooperative with staff. No c/o pain, headache, nausea. Tremors still present BUE. Reiceved one dose of PRN ativan this shift before bedtime. He was able to ambulate with SBA and walker to the bathroom. the IV in his Left AC was pulled as it was no longer patent. Powerglide IV remains in place in the right AC. Patient is hopeful he'll d/c soon and states "i'm looking forward to sobriety again."
[2022-08-04 06:26] LABS: Hematocrit 42.8 % (37.0-53.0); Hemoglobin 14.2 g/dL (13.5-17.5); Mean Corpuscular HGB 34.2 pg (26.0-34.0); Mean Corpuscular HGB Conc 33.2 g/dL (31.5-36.5); Mean Corpuscular Volume 103 fL (80-100); Mean Platelet Volume 10.6 fL (9.1-12.4); Platelet Count 88 K/mm3 (150-400); RDW Coefficient Variation 12.5 % (11.7-14.2); RDW Standard Deviation 47.9 fL (35.1-46.3); Red Blood Cell Count 4.15 M/mm3 (4.30-5.90); White Blood Cell Count 3.55 K/mm3 (4.00-11.30)
[2022-08-04 06:52] LABS: Albumin, Blood 2.7 g/dL (3.4-5.0); Albumin/Globulin Ratio 0.7 (0.8-1.8); Bilirubin, Total 1.6 mg/dL (0.1-1.0); Bun/Creatinine Ratio 19.4 (12.0-20.0); Calcium, Blood 9.2 mg/dL (8.5-10.1); Creatinine, Blood 1.08 mg/dL (0.60-1.20); Globulin, Blood 4.1 g/dL (2.2-4.0); Potassium, Blood 3.8 mmol/L (3.5-5.5); Total Protein, Blood 6.8 g/dL (6.4-8.2)
--- NOTE | 2022-08-04 18:02 | NUR ---
SHIFT SUMMARY PT ALERT AND ORIENTED, CALLS APPROPRIATELY. PT X1 ASSIST WITH GAITBELT, FWW. PT ABLE TO WALK AROUND UNIT TODAY WITH PHYSICAL THERAPY AND BIOMATHEMATICIAN. BP REMAINS STABLE ON PO MEDICATIONS. PT SET TO D/C HOME TOMORROW. WILL CONTINUE TO MONITOR. CALL LIGHT WITHIN REACH.
--- NOTE | 2022-08-05 04:22 | NUR ---
Pt A/Ox4 and cooperative with staff. Pt had no c/o pain, nausea, headaches. Did state he has been having some mild dizziness, but noted that had been ongoing this stay. Pt has been able to transfer SBA with walker. Pt is looking forward to discharging.
[2022-08-05] MEDS ORDERED: CATAPRES-TTS 21 EAC1 TOP (11:08)
[2022-08-05] MEDS ORDERED: IBUP600 PO (11:09)
[2022-08-05] MEDS ORDERED: PANT20 PO (11:11)
[2022-08-05] MEDS ORDERED: PROP80ER PO (11:13)
[2022-08-05] MEDS ORDERED: CATAPRES-TTS 31 EAC2 TOP (11:17)
== END 2022-08-05 11:50 | disposition home or self-care (01) | DRG 897 ==
LOC: ER 01:37 → ICUW 06:02 → MEDS 06:02 → ICUE 07:06 → MEDS 08-01 15:07
PROVIDERS: Emergency Medicine; Internal Medicine; ADMIT Internal Medicine
PROC: HZ2ZZZZ Detoxification Services for Substance Abuse Treatment (ICD-10-PCS; principal; 2022-07-27)
DX: F10.231 Alcohol dependence with withdrawal delirium (principal); D68.4 Acquired coagulation factor deficiency; I10 Essential (primary) hypertension; F32.A Depression, unspecified; J45.909 Unspecified asthma, uncomplicated; D69.59 Other secondary thrombocytopenia; K70.30 Alcoholic cirrhosis of liver without ascites; K76.0 Fatty (change of) liver, not elsewhere classified; D72.819 Decreased white blood cell count, unspecified; E83.42 Hypomagnesemia; R33.9 Retention of urine, unspecified; Z90.49 Acquired absence of other specified parts of digestive tract; Z87.891 Personal history of nicotine dependence; Z79.899 Other long term (current) drug therapy
CPT/HCPCS: 36415; 51701; 51702; 80048; 80053; 80069; 81001; 82140; 83690; 83735; 83880; 84100; 85014; 85018; 85025; 85027; 85610; 87086; 94660; 94760; 94762; 96374; 97110; 97116; 97129; 97130; 97162; 97166; 97530; 97535; 99285-25; A9270; C9113; J0360; J2060; J2560; J3411; J3475; J7030; J7042; J7050; J7120

== ENCOUNTER 2024-09-18 05:14 | Emergency (ER) | payer OTHER ==
[~2024-09-18] VITALS: Ht 185.4 cm; Wt 108.9 kg
[~2024-09-18 05:14] MED LIST changes: +Ativan1 MG PO; +CATAPRES-TTS 21 EAC1 TOP; +CATAPRES-TTS 31 EAC2 TOP; +CLONIDINE; +IBUP600 PO; +METOPROLOL TART25 MG PO; +NARCAN4 M1 NS; +NEURONTIN300 MG PO; +Naltrexone HCl50 MG PO; +PANT20 PO; +PROP80ER PO; +SULTRIDS PO; +Vistaril50 MG PO
[2024-09-18 08:15] VITALS: BP 143/78
[2024-09-18] MEDS ORDERED: Ketorolac Tromethamine 30mg Vial IM ONE (08:45)
[2024-09-18] MEDS ORDERED: Methocarbamol 500 MG Tab PO ONE (08:45)
[2024-09-18] MEDS ORDERED: Robaxin750 MG PO (08:48)
[2024-09-18] MEDS ORDERED: OXYC5 PO (08:48)
== END 2024-09-18 08:55 | disposition home or self-care (01) ==
LOC: ER 05:14
DX: S46.912A Strain of unspecified muscle, fascia and tendon at shoulder and upper arm level, left arm, initial encounter (principal); I10 Essential (primary) hypertension; J45.909 Unspecified asthma, uncomplicated; Z87.891 Personal history of nicotine dependence; Z79.899 Other long term (current) drug therapy; X58.XXXA Exposure to other specified factors, initial encounter
CPT/HCPCS: 73030; 96372; 99283-25; A9270; J1885

== ENCOUNTER 2024-10-29 20:52 | Emergency (ER) | payer OTHER ==
[~2024-10-29] VITALS: Ht 188 cm; Wt 72.6 kg
[~2024-10-29 20:52] MED LIST changes: +OXYC5 PO; +Robaxin750 MG PO
[2024-10-29 21:38] LABS: BASOPHILS ABSOLUTE AUTO 0.08 K/mm3 (0.00-0.23); BASOPHILS PERCENT AUTO 1 % (0-2); EOSINOPHILS ABSOLUTE AUTO 0.07 K/mm3 (0.00-0.68); EOSINOPHILS PERCENT AUTO 1 % (0-6); Hematocrit 41.9 % (37.0-53.0); Hemoglobin 15.3 g/dL (13.5-17.5); IMMATURE GRAN ABSOLUTE AUTO 0.02 K/mm3 (0.00-0.10); IMMATURE GRAN PERCENT AUTO 0 % (0-1); LYMPHOCYTES ABSOLUTE AUTO 1.15 K/mm3 (0.84-5.20); LYMPHOCYTES PERCENT AUTO 20 % (21-46); MONOCYTES ABSOLUTE AUTO 0.77 K/mm3 (0.16-1.47); MONOCYTES PERCENT AUTO 13 % (4-13); Mean Corpuscular HGB 34.6 pg (26.0-34.0); Mean Corpuscular HGB Conc 36.5 g/dL (31.5-36.5); Mean Corpuscular Volume 95 fL (80-100); Mean Platelet Volume 10.3 fL (9.1-12.4); NEUTROPHILS ABSOLUTE AUTO 3.64 K/mm3 (1.96-9.15); NEUTROPHILS PERCENT AUTO 64 % (41-73); Platelet Count 125 K/mm3 (150-400); RDW Coefficient Variation 12.4 % (11.7-14.2); RDW Standard Deviation 43.8 fL (35.1-46.3); Red Blood Cell Count 4.42 M/mm3 (4.30-5.90); White Blood Cell Count 5.73 K/mm3 (4.00-11.30)
[2024-10-29 21:57] LABS: International Normalized Ratio 1.09; Prothrombin Time Results 11.6 Sec (9.7-11.5)
[2024-10-29] MEDS ORDERED: Ondansetron HCl 2 MG / ML 2ML Vial IV ONE (22:10)
[2024-10-29 23:43] LABS: Albumin, Blood 3.1 g/dL (3.4-5.0); Albumin/Globulin Ratio 0.7 (0.8-1.8); Bilirubin, Total 0.8 mg/dL (0.1-1.0); Bun/Creatinine Ratio 13.7 (12.0-20.0); Calcium, Blood 7.9 mg/dL (8.5-10.1); Creatinine, Blood 0.8 mg/dL (0.60-1.20); Globulin, Blood 4.2 g/dL (2.2-4.0); Potassium, Blood 4.1 mmol/L (3.5-5.5); Total Protein, Blood 7.3 g/dL (6.4-8.2)
[2024-10-30 01:10] LABS: Hematocrit 39.3 % (37.0-53.0)
[2024-10-30] MEDS ORDERED: Pantoprazole Sodium 40 MG Injection IV ONE (02:15)
[2024-10-30] MEDS ORDERED: ChlordiazePOXIDE 25 MG Cap PO ONE (02:25)
[2024-10-30] MEDS ORDERED: Metoclopramide HCl 5MG / ML 2ML Vial IV ONE (02:25)
[2024-10-30 02:58] VITALS: BP 164/99
[2024-10-30] MEDS ORDERED: CHLO25 PO (03:05)
== END 2024-10-30 03:41 | disposition home or self-care (01) ==
LOC: ER 20:52
PROVIDERS: Emergency Medicine; Student in an Organized Health Care Education/Training Program
DX: K92.0 Hematemesis (principal); J45.909 Unspecified asthma, uncomplicated; I10 Essential (primary) hypertension; Z79.899 Other long term (current) drug therapy; Z87.891 Personal history of nicotine dependence
CPT/HCPCS: 71046; 80053; 80320; 85014; 85018; 85025; 85610; 85730; 86850; 86900; 86901; 96374; 96375; 99285-25; A9270; J2405; J2470; J2765

== ENCOUNTER 2024-12-01 07:12 | Emergency (ER) | payer OTHER ==
[~2024-12-01] VITALS: Ht 188 cm; Wt 113.4 kg
[~2024-12-01 07:12] MED LIST changes: +CHLO25 PO
[2024-12-01 07:39] LABS: BASOPHILS ABSOLUTE AUTO 0.03 K/mm3 (0.00-0.23); BASOPHILS PERCENT AUTO 1 % (0-2); EOSINOPHILS ABSOLUTE AUTO 0.07 K/mm3 (0.00-0.68); EOSINOPHILS PERCENT AUTO 1 % (0-6); Hematocrit 35.9 % (37.0-53.0); Hemoglobin 12.3 g/dL (13.5-17.5); IMMATURE GRAN ABSOLUTE AUTO 0.05 K/mm3 (0.00-0.10); IMMATURE GRAN PERCENT AUTO 1 % (0-1); LYMPHOCYTES ABSOLUTE AUTO 0.53 K/mm3 (0.84-5.20); LYMPHOCYTES PERCENT AUTO 9 % (21-46); MONOCYTES ABSOLUTE AUTO 0.74 K/mm3 (0.16-1.47); MONOCYTES PERCENT AUTO 12 % (4-13); Mean Corpuscular HGB 34.6 pg (26.0-34.0); Mean Corpuscular HGB Conc 34.3 g/dL (31.5-36.5); NEUTROPHILS ABSOLUTE AUTO 4.68 K/mm3 (1.96-9.15); NEUTROPHILS PERCENT AUTO 77 % (41-73); RDW Coefficient Variation 13.3 % (11.7-14.2); RDW Standard Deviation 49.5 fL (35.1-46.3); Red Blood Cell Count 3.56 M/mm3 (4.30-5.90)
[2024-12-01] MEDS ORDERED: Pantoprazole Sodium 40 MG in NS 50 ML IV SCH (07:40)
[2024-12-01] MEDS ORDERED: LORazepam 2 MG/ML 1ML Injection IV ONE ×2 (07:40→09:30)
[2024-12-01] MEDS ORDERED: Octreotide Acetate 50 MCG in NS 50 ML IV ONE (07:40)
[2024-12-01] MEDS ORDERED: Pantoprazole Sodium 40 MG Injection IV ONE (07:40)
[2024-12-01] MEDS ORDERED: CefTRIAXone Sodium 1,000 MG in NS 100 ML IV ONE (07:40)
[2024-12-01 07:44] LABS: Mean Corpuscular Volume 101 fL (80-100)
[2024-12-01 07:46] LABS: Platelet Count 42 K/mm3 (150-400)
[2024-12-01 08:01] LABS: Alanine Aminotransfer (ALT/SGP 76 U/L (12-78); Albumin, Blood 2.8 g/dL (3.4-5.0); Albumin/Globulin Ratio 0.7 (0.8-1.8); Alk Phos 164 U/L (50-136); Anion Gap 17 mmol/L (3-11); Aspartate Aminotrans (AST/SGOT 155 U/L (12-37); Bilirubin, Total 4.3 mg/dL (0.1-1.0); Blood Urea Nitrogen 29 mg/dL (8-24); Bun/Creatinine Ratio 38.4 (12.0-20.0); CO2, Blood 23 mmol/L (21-32); Calcium, Blood 8.6 mg/dL (8.5-10.1); Chloride, Blood 101 mmol/L (98-108); Creatinine, Blood 0.76 mg/dL (0.60-1.20); Ethanol (Alcohol), Blood, Med <3 mg/dL; Globulin, Blood 3.8 g/dL (2.2-4.0); Glomerular Filtration Rate 104 (60-); Glucose, Blood 206 mg/dL (70-99); Potassium, Blood 4.6 mmol/L (3.5-5.5); Sodium, Blood 136 mmol/L (136-145); Total Protein, Blood 6.6 g/dL (6.4-8.2)
[2024-12-01 08:19] LABS: International Normalized Ratio 1.45; Prothrombin Time Results 15.1 Sec (9.7-11.5)
[2024-12-01 10:00] VITALS: BP 159/90
== END 2024-12-01 10:05 | disposition short-term general hospital (02) ==
LOC: ER 07:12
PROVIDERS: Emergency Medicine
DX: K92.0 Hematemesis (principal); D69.6 Thrombocytopenia, unspecified; R74.01 Elevation of levels of liver transaminase levels; K76.6 Portal hypertension; F10.239 Alcohol dependence with withdrawal, unspecified
CPT/HCPCS: 74177; 80053; 80320; 85025; 85610; 85730; 86850; 86900; 86901; 93005; 93010; 96365; 96366; 96368; 96375; 96376; 99285-25; J0696; J2060; J2354; J2470; Q9967